=== PATIENT | male | born 1955 | race Caucasian/White ===

== ENCOUNTER 2016-07-22 12:53 | Emergency (ER) | payer BC ==
[2016-07-22 13:13] VITALS: BP 166/99; PULSE 84; RESP 18; TEMP 98.5
--- NOTE | 2016-07-22 13:54 | ED ---
General Adult HPI - General Chief complaint: Back Pain/Injury Stated complaint: Back Pain Time Seen by Provider: 07/22/16 13:20 Source: patient, RN notes reviewed Mode of arrival: ambulatory Limitations: no limitations - History of Present Illness Initial comments: Patient 60-year-old male who presents emergency room today with a chief complaint of electrical right back pain and numbness to the right side. Patient does admit that it started just approximate hour ago. He states he was driving he felt a electrical-type shock starting on the right side of his lower back that radiated up going towards his right side of his neck. Patient admits that last approximately a minute and went away and came back approximately 10- 15 minutes later. He states this has happened now for 5 times. Patient states there's been no injury or trauma to the area. He never had similar symptoms in the past. He currently denies any other complaints or symptoms. He states that at this time he's not feeling any pain. He states does not reproduce biting movements. Patient denies any recent fever, chills, shortness of breath, chest pain, back pain, abdominal pain, nausea or vomiting, numbness or tingling , dysuria or hematuria, constipation or diarrhea, headaches or visual changes, or any other complaints. - Related Data Allergies Allergy/AdvReac Type Severity Reaction Status Date / Time mold Allergy Unknown Verified 07/22/16 13:13 Review of Systems ROS Statement: Those systems with pertinent positive or pertinent negative responses have been documented in the HPI. ROS Other: All systems not noted in ROS Statement are negative. Past Medical History Past Medical History: Cancer Additional Past Medical History / Comment(s): melanoma and kidney ca History of Any Multi-Drug Resistant Organisms: None Reported Additional Past Surgical History / Comment(s): nephrectomy Past Psychological History: No Psychological Hx Reported Smoking Status: Never smoker Past Alcohol Use History: None Reported Past Drug Use History: None Reported General Exam - General Exam Comments Initial Comments: General: The patient is awake and alert, in no distress, and does not appear acutely ill. Eye: Pupils are equal, round and reactive to light, extra-ocular movements are intact. No nystagmus. There is normal conjunctiva bilaterally. No signs of icterus. Ears, nose, mouth and throat: There are moist mucous membranes and no oral lesions. Neck: The neck is supple, there is no tenderness or JVD. Cardiovascular: There is a regular rate and rhythm. No murmur, rub or gallop is appreciated. Respiratory: Lungs are clear to auscultation, respirations are non-labored, breath sounds are equal. No wheezes, stridor, rales, or rhonchi. Gastrointestinal: Soft, non-distended, non-tender abdomen without masses or organomegaly noted. There is no rebound or guarding present. No CVA tenderness. Bowel sounds are unremarkable. Musculoskeletal: No appearance of cervical, thoracic, lumbar spine. No step- offs deformities appreciated. Normal ROM, no tenderness. Strength 5/5. Sensation intact. Pulses equal bilaterally 2+. Neurological: A&O x 3. CN II-XII intact, There are no obvious motor or sensory deficits. Coordination appears grossly intact. Speech is normal. Skin: Skin is warm and dry and no rashes or lesions are noted. Psychiatric: Cooperative, appropriate mood & affect, normal judgment. Limitations: no limitations Course Vital Signs 07/22/16 13:10 Temperature 98.5 F Pulse Rate 84 Respiratory 18 Rate Blood Pressure 166/99 O2 Sat by Pulse 97 Oximetry Medical Decision Making - Medical Decision Making Case discussed in detail with attending physician Dr. Borges. Patient's x-rays reviewed and does show evidence for arthritic changes with no acute abnormalities. Results were discussed with the patient. Patient will be discharged home and advised to follow up his family doctor over the next 2 days. Patient advised return to emergency room if any symptoms increase or worsen or for any other concerns. Disposition Clinical Impression: Paresthesia Disposition: HOME SELF-CARE Condition: Good Instructions: Paresthesia (ED) Additional Instructions: Please follow-up with family doctor in the next 2 days of symptoms have not improved. Please return to emergency room if the symptoms increase or worsen or for any other concerns. Time of Disposition: 14:04
--- NOTE | 2016-07-22 13:57 | XR ---
EXAMINATION TYPE: 3 views thoracic spine. 3 views lumbar spine. DATE OF EXAM: 07/22/2016 1:47 PM COMPARISON: NONE HISTORY: 60-year-old male right-sided back pain and numbness FINDINGS: Thoracic spine: All pedicles are visualized. There is mild endplate spondylosis particularly in the mid to lower thor acic spine. Vertebral body heights are preserved and alignment is maintained. Lumbar spine: 5 lumbar type vertebral bodies. Surgical clips projecting at the right paramedian upper to mid abdome n. Mild degenerative disc height loss at L5-S1 with mild endplate spondylosis throughout. Additional mild degenerative disc interspace narrowing at T12-L1 and L1-L2. Vertebral body heights are preserved and alignment is maintained. Facet arthropathy lower lumbar spine. IMPRESSION: 1. Thoracic spine: Mild endplate spondylosis mid to lower thoracic spine. No vertebral compression co llapse or malalignment. 2. Lumbar spine: Facet arthropathy lower lumbar spine. Additional scattered mild degenerative disc di sease. No vertebral compression collapse or malalignment.
== END 2016-07-22 14:12 | disposition home or self-care (01) ==
LOC: EC 12:53
DX: R20.9 Unspecified disturbances of skin sensation (principal); M54.5 Low back pain; M54.2 Cervicalgia; Z91.048 Other nonmedicinal substance allergy status; Z85.528 Personal history of other malignant neoplasm of kidney; Z85.820 Personal history of malignant melanoma of skin
CPT/HCPCS: 72072; 72100; 99283

== ENCOUNTER 2021-12-27 09:23 | Inpatient (IN) | payer BC, OTHER ==
[2021-12-27] MEDS ORDERED: ASPIRIN 81 MG PO STA (09:25)
[2021-12-27] MEDS ORDERED: NITROGLYCERIN OINT 1 INCH/GM PACKET TOPICAL STA (09:25)
--- NOTE | 2021-12-27 09:30 | ED ---
General Adult HPI - General Stated complaint: Chest pain Time Seen by Provider: 12/27/21 09:25 Source: patient, EMS, RN notes reviewed, old records reviewed Mode of arrival: EMS Limitations: no limitations - History of Present Illness Initial comments: Patient is a pleasant 66-year-old male presenting to the emergency department with concerns for chest discomfort. Onset was yesterday while doing yardwork. Discomfort was 5/10. Discomfort is right sternal and difficult to describe. A robertson was diaphoretic yesterday. No nausea. No dyspnea. Discomfort resolved with nitroglycerin by EMS. Patient is currently symptom-free at this time. No leg pain or leg swelling. No history of similar symptoms previously. Patient does have history of diabetes and hypertension. - Related Data Allergies Allergy/AdvReac Type Severity Reaction Status Date / Time mold Allergy Unknown Verified 07/22/16 13:13 Review of Systems ROS Statement: Those systems with pertinent positive or pertinent negative responses have been documented in the HPI. ROS Other: All systems not noted in ROS Statement are negative. Constitutional: Denies: fever Eyes: Denies: eye pain ENT: Denies: ear pain Respiratory: Denies: cough, dyspnea Cardiovascular: Reports: as per HPI, chest pain Endocrine: Denies: fatigue Gastrointestinal: Denies: abdominal pain Genitourinary: Denies: dysuria Musculoskeletal: Denies: back pain Skin: Denies: rash Neurological: Denies: weakness Past Medical History Past Medical History: Cancer Additional Past Medical History / Comment(s): melanoma and kidney ca History of Any Multi-Drug Resistant Organisms: None Reported Additional Past Surgical History / Comment(s): nephrectomy Past Psychological History: No Psychological Hx Reported Past Alcohol Use History: None Reported Past Drug Use History: None Reported General Exam Limitations: no limitations General appearance: alert, in no apparent distress Head exam: Present: normocephalic Eye exam: Present: normal appearance Neck exam: Present: normal inspection Respiratory exam: Present: normal lung sounds bilaterally. Absent: chest wall tenderness Cardiovascular Exam: Present: regular rate, normal rhythm, normal heart sounds Expanded Peripheral pulses: 2+: Radial (R), Radial (L), Posterior Tibialis (R), Posterior Tibialis (L) GI/Abdominal exam: Present: soft. Absent: tenderness Extremities exam: Present: normal inspection. 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 Finch and will come evaluate. 12/27/21 09:54 Dr. Becker did see the patient and will go to the [facility] [employer] that has been called. EKG Findings - EKG Comments: EKG Findings:: Sinus rhythm with rate of 72. First-degree AV block VT 206. QRS 104. QT 356. QTc 381. Left axis. Inferior Q waves. Septal Q waves with ST elevation. Medical Decision Making - Medical Decision Making Patient reevaluated. Patient updated. Case discussed with Dr. Crews, who will admit covering Dr. Brennan. - Lab Data Result diagrams: 12/27/21 09:37 12/27/21 09:37 Lab Results 12/27/21 12/27/21 Range/Units 09:37 09:37 WBC 14.0 H (3.8-10.6) k/uL RBC 5.65 (4.30-5.90) m/uL Hgb 17.0 (13.0-17.5) gm/dL Hct 48.1 (39.0-53.0) % MCV 85.1 (80.0-100.0) fL MCH 30.1 (25.0-35.0) pg MCHC 35.4 (31.0-37.0) g/dL RDW 13.7 (11.5-15.5) % Plt Count 196 (150-450) k/uL MPV 7.9 Neutrophils % 83 % Lymphocytes % 8 % Monocytes % 7 % Eosinophils % 1 % Basophils % 0 % Neutrophils # 11.7 H (1.3-7.7) k/uL Lymphocytes # 1.1 (1.0-4.8) k/uL Monocytes # 0.9 (0-1.0) k/uL Eosinophils # 0.1 (0-0.7) k/uL Basophils # 0.1 (0-0.2) k/uL Sodium 138 (137-145) mmol/L Potassium 4.4 (3.5-5.1) mmol/L Chloride 99 (98-107) mmol/L Carbon Dioxide 28 (22-30) mmol/L Anion Gap 11 mmol/L BUN 18 (9-20) mg/dL Creatinine 1.08 (0.66-1.25) mg/dL Est GFR (CKD-EPI)AfAm 83 (>60 ml/min/1.73 sqM) Est GFR (CKD-EPI)NonAf 72 (>60 ml/min/1.73 sqM) Glucose 273 H (74-99) mg/dL Calcium 10.3 H (8.4-10.2) mg/dL Magnesium 1.9 (1.6-2.3) mg/dL Total Bilirubin 0.7 (0.2-1.3) mg/dL AST 229 H (17-59) U/L ALT 77 H (4-49) U/L Alkaline Phosphatase 86 (38-126) U/L Total Protein 7.3 (6.3-8.2) g/dL Albumin 4.6 (3.5-5.0) g/dL - Radiology Data Radiology results: image reviewed Critical Care Time Critical Care Time: Yes Total Critical Care Time: 33 Disposition Clinical Impression: Myocardial infarction Disposition: ADMITTED IP TO THIS [facility] Condition: Serious Is patient prescribed a controlled substance at d/c from ED?: No Referrals: Leonard Brennan MD [Primary Care Provider] - 1-2 days Time of Disposition: 09:56
[2021-12-27] MEDS ORDERED: ATORVASTATIN 80 MG TAB PO STA (09:40)
[2021-12-27 09:44] LABS: Basophils # (A) 0.1 k/uL (0-0.2); Basophils % (A) 0 %; Eosinophils # (A) 0.1 k/uL (0-0.7); Eosinophils % (A) 1 %; HCT 48.1 % (39.0-53.0); Lymphocytes # (A) 1.1 k/uL (1.0-4.8); Lymphocytes % (A) 8 %; MCH 30.1 pg (25.0-35.0); MCHC 35.4 g/dL (31.0-37.0); MCV 85.1 fL (80.0-100.0); Mean Platelet Volume 7.9; Monocytes # (A) 0.9 k/uL (0-1.0); Monocytes % (A) 7 %; Neutrophils # (A) 11.7 k/uL (1.3-7.7); Neutrophils % (A) 83 %; Platelet Count 196 k/uL (150-450); RBC 5.65 m/uL (4.30-5.90); RDW 13.7 % (11.5-15.5)
[2021-12-27] MEDS ORDERED: HEPARIN SODIUM 1,000 UN/ML (10ML VL) IV ONE (09:44)
[2021-12-27] MEDS ORDERED: HEPARIN SODIUM 1,000 UN/ML (10ML VL) IV PRN (09:44)
[2021-12-27] MEDS ORDERED: HEPARIN SOD,PORK IN 0.45% NACL 25,000 UNIT in 0.45% NACL 1 250ML.BAG IV SCH (09:45)
[2021-12-27 09:53] LABS: Albumin 4.6 g/dL (3.5-5.0); Calcium 10.3 mg/dL (8.4-10.2); Magnesium 1.9 mg/dL (1.6-2.3); Potassium 4.4 mmol/L (3.5-5.1); Total Bilirubin 0.7 mg/dL (0.2-1.3); Total Protein 7.3 g/dL (6.3-8.2)
--- NOTE | 2021-12-27 09:57 | XR ---
EXAMINATION TYPE: XR chest 1V portable DATE OF EXAM: 12/27/2021 COMPARISON: Chest x-ray 01/17/2016 HISTORY: Chest pain TECHNIQUE: Single frontal view of the chest is obtained. FINDINGS: There is no focal air space opacity, pleural effusion, or pneumothorax seen. The cardiac silhouette size is within normal limits. The osseous structures are intact. IMPRESSION: No acute process.
[2021-12-27] MEDS ORDERED: NITROGLYCERIN SL TABS 0.4 MG TAB SUBLINGUAL PRN ×2 (09:59→11:57)
[2021-12-27 10:03] LABS: INR 1.1 (<1.2); Partial Thromboplastin Time 22.6 sec (22.0-30.0); Prothrombin Time 11.4 sec (9.0-12.0)
[2021-12-27] MEDS ORDERED: ACETAMINOPHEN TAB 325 MG TAB PO PRN (10:19)
[2021-12-27] MEDS ORDERED: NALOXONE 0.4 MG/ML 1 ML VIAL IV PRN (10:19)
[2021-12-27] MEDS ORDERED: DEXTROSE 50% SYRINGE 50 ML IVP PRN ×2 (10:20)
[2021-12-27] MEDS ORDERED: fentaNYL (PF) 50 MCG/ML 2 ML AMP ONE (10:25)
--- NOTE | 2021-12-27 10:25 | P.HPIM ---
History of Present Illness H&P Date: 12/27/21 Patient is a 66-year-old male with pain with PMH of melanoma post resection, renal CA post nephrectomy 12 years ago, diabetes mellitus and presents ED for chest pain. Patient reports chest pain that started at 4:30 PM yesterday. 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 He reports right-sided chest pain that radiates to the right arm. Pain is dull in nature. Pain is 3 out of 10 in severity. Pain was associated with diaphoresis. Patient thought this was a musculskeletal pain, but came to the ED when his pain persisted. He denies any exertional chest pain. No exertional shortness of breath. He denies any headache, lower extremity edema, nausea vomiting, fever or chills, cough, palpitations, changes in urination or bowel habits. No changes in appetite or weight. He denies any dizziness, numbness/weakness/tingling of the extremities. In the ED, his vital signs are stable. CBC showed leukocytosis of 14. D-dimer was 0.83. INR was 1.1. CMP showed glucose of 273, calcium of 10.3, AST of 229 and ALT of 77. Chest x-ray negative. EKG was concerning for inferior wall AL with Q waves. Plans for cardiac catheterization. Review of systems is performed and is negative except above. General: non toxic, no distress, appears at stated age Derm: warm, dry Head: atraumatic, normocephalic, symmetric Eyes: EOMI, no lid lag, anicteric sclera Mouth: no lip lesion, mucus membranes moist Cardiovascular: S1S2 reg, no murmur, positive posterior tibial pulse bilateral, Lungs: CTA bilateral, no rhonchi, no rales , no accessory muscle use Abdominal: soft, nontender to palpation, no guarding, no appreciable organomegaly Ext: no gross muscle atrophy, no edema, no contractures Neuro: CN II-XI grossly intact, no focal neuro deficits Psych: Alert, oriented, appropriate affect #Inferior wall AL #Elevated d-dimer #Leukocytosis #Diabetes mellitus with hyperglycemia #Transaminitis Chronic conditions: Melanoma post resection, Renal CA post nephrectomy 12 years ago EKG concerns for inferior wall AL. Patient will be started on a heparin drip. ASA and Lipitor ordered. Telemetry monitoring. Plans for cardiac catheterization. Echocardiogram ordered. Cardiology consulted. Elevated DDimer could be related to NSTEMI. Patient is not hypoxic nor tachyc ardic. Will continue to monitor for now. Leukocytosis likely reactive. No signs of active infection. Start low dose insulin sliding scale along with accuchecks ACHS and hypoglycemic precautions. Unknown etiology for transaminitis. Non obstructive. DVT prophylaxis: Heparin drip Discussed with: Patient, ED physician Anticipated discharge: 2-[address]: Home A total of 30 minutes was spent on the care of this complex patient more than 50% of the time was spent in counseling and care coordination. Patient says girlfriend decision maker if he can't make decisions for himself. Patient would like to be full code. Past Medical History Past Medical History: Cancer Additional Past Medical History / Comment(s): melanoma and kidney ca History of Any Multi-Drug Resistant Organisms: None Reported Additional Past Surgical History / Comment(s): nephrectomy Past Psychological History: No Psychological Hx Reported Past Alcohol Use History: None Reported Past Drug Use History: None Reported Medications and Allergies Allergies Allergy/AdvReac Type Severity Reaction Status Date / Time mold Allergy Unknown Verified 07/22/16 13:13 Physical Exam Vitals: Vital Signs Temp Pulse Pulse Resp BP Pulse Ox 12/27/21 09:32 71 12/27/21 09:29 98.4 F 76 16 138/86 95 Intake and Output 12/26/21 12/27/21 12/27/21 22:59 06:59 14:59 Other: Weight 81.647 kg Results CBC & Chem 7: 12/27/21 09:37 12/27/21 09:37 Labs: Abnormal Lab Results - Last 24 Hours (Table) 12/27/21 12/27/21 12/27/21 Range/Units 09:37 09:37 09:37 WBC 14.0 H (3.8-10.6) k/uL Neutrophils # 11.7 H (1.3-7.7) k/uL D-Dimer 0.83 H (<0.60) mg/L FEU Glucose 273 H (74-99) mg/dL Calcium 10.3 H (8.4-10.2) mg/dL AST 229 H (17-59) U/L ALT 77 H (4-49) U/L
--- NOTE | 2021-12-27 10:25 | P.HPIM ---
History of Present Illness H&P Date: 12/27/21 Patient is a 66-year-old male with pain with PMH of melanoma post resection, renal CA post nephrectomy 12 years ago, diabetes mellitus and presents ED for chest pain. Patient reports chest pain that started at 4:30 PM yesterday. 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 He reports right-sided chest pain that radiates to the right arm. Pain is dull in nature. Pain is 3 out of 10 in severity. Pain was associated with diaphoresis. Patient thought this was a musculskeletal pain, but came to the ED when his pain persisted. He denies any exertional chest pain. No exertional shortness of breath. He denies any headache, lower extremity edema, nausea vomiting, fever or chills, cough, palpitations, changes in urination or bowel habits. No changes in appetite or weight. He denies any dizziness, numbness/weakness/tingling of the extremities. In the ED, his vital signs are stable. CBC showed leukocytosis of 14. D-dimer was 0.83. INR was 1.1. CMP showed glucose of 273, calcium of 10.3, AST of 229 and ALT of 77. Chest x-ray negative. EKG was concerning for inferior wall OR with Q waves. Plans for cardiac catheterization. Review of systems is performed and is negative except above. General: non toxic, no distress, appears at stated age Derm: warm, dry Head: atraumatic, normocephalic, symmetric Eyes: EOMI, no lid lag, anicteric sclera Mouth: no lip lesion, mucus membranes moist Cardiovascular: S1S2 reg, no murmur, positive posterior tibial pulse bilateral, Lungs: CTA bilateral, no rhonchi, no rales , no accessory muscle use Abdominal: soft, nontender to palpation, no guarding, no appreciable organomegaly Ext: no gross muscle atrophy, no edema, no contractures Neuro: CN II-XI grossly intact, no focal neuro deficits Psych: Alert, oriented, appropriate affect #Inferior wall OR #Elevated d-dimer #Leukocytosis #Diabetes mellitus with hyperglycemia #Transaminitis Chronic conditions: Melanoma post resection, Renal CA post nephrectomy 12 years ago EKG concerns for inferior wall OR. Patient will be started on a heparin drip. ASA and Lipitor ordered. Telemetry monitoring. Plans for cardiac catheterization. Echocardiogram ordered. Cardiology consulted. Elevated DDimer could be related to NSTEMI. Patient is not hypoxic nor tachyc ardic. Will continue to monitor for now. Leukocytosis likely reactive. No signs of active infection. Start low dose insulin sliding scale along with accuchecks ACHS and hypoglycemic precautions. Unknown etiology for transaminitis. Non obstructive. DVT prophylaxis: Heparin drip Discussed with: Patient, ED physician Anticipated discharge: 2-[address]: Home A total of 30 minutes was spent on the care of this complex patient more than 50% of the time was spent in counseling and care coordination. Patient says girlfriend decision maker if he can't make decisions for himself. Patient would like to be full code. Past Medical History Past Medical History: Cancer Additional Past Medical History / Comment(s): melanoma and kidney ca History of Any Multi-Drug Resistant Organisms: None Reported Additional Past Surgical History / Comment(s): nephrectomy Past Psychological History: No Psychological Hx Reported Past Alcohol Use History: None Reported Past Drug Use History: None Reported Medications and Allergies Allergies Allergy/AdvReac Type Severity Reaction Status Date / Time mold Allergy Unknown Verified 07/22/16 13:13 Physical Exam Vitals: Vital Signs Temp Pulse Pulse Resp BP Pulse Ox 12/27/21 09:32 71 12/27/21 09:29 98.4 F 76 16 138/86 95 Intake and Output 12/26/21 12/27/21 12/27/21 22:59 06:59 14:59 Other: Weight 81.647 kg Results CBC & Chem 7: 12/27/21 09:37 12/27/21 09:37 Labs: Abnormal Lab Results - Last 24 Hours (Table) 12/27/21 12/27/21 12/27/21 Range/Units 09:37 09:37 09:37 WBC 14.0 H (3.8-10.6) k/uL Neutrophils # 11.7 H (1.3-7.7) k/uL D-Dimer 0.83 H (<0.60) mg/L FEU Glucose 273 H (74-99) mg/dL Calcium 10.3 H (8.4-10.2) mg/dL AST 229 H (17-59) U/L ALT 77 H (4-49) U/L
[2021-12-27] MEDS ORDERED: MIDAZOLAM 2 MG/2 ML VIAL IV ONE (10:38)
[2021-12-27] MEDS ORDERED: fentaNYL (PF) 50 MCG/ML 2 ML AMP IV ONE (10:38)
[2021-12-27] MEDS ORDERED: LIDOCAINE 1% INJ 10MG/ML (30 ML VIAL-PF) SQ ONE (10:40)
[2021-12-27] MEDS ORDERED: VERAPAMIL SYRINGE (5 MG/10 ML) INTRAARTER ONE (10:42)
[2021-12-27] MEDS ORDERED: HEPARIN SODIUM 1,000 UN/ML (10ML VL) ONE (10:50)
[2021-12-27] MEDS: HEPARIN SODIUM 1,000 UN/ML (10ML VL) IV ONE ×3 (10:52→11:52)
[2021-12-27] MEDS ORDERED: SODIUM CHLORIDE 0.9% 1,000 ML IV ONE (10:52)
[2021-12-27] MEDS ORDERED: PRASUGREL 10 MG TAB ONE (10:56)
[2021-12-27] MEDS ORDERED: PRASUGREL 10 MG TAB PO ONE (10:59)
[2021-12-27] MEDS: NITROGLYCERIN 1000MCG/10ML SYRINGE INTRACORON ONE ×6 (11:04→11:41)
[2021-12-27] MEDS ORDERED: IOPAMIDOL-370 125ML BTL INJ ONE (11:15)
--- NOTE | 2021-12-27 11:39 | P.CRDCN ---
History of Present Illness History of present illness: This is Dr. Becker dictating a consult on this patient The patient was interviewed and examined IMPRESSION / ASSESSMENT: Completed large anterior wall OR greater than 17 hours post onset Twelve-lead EKG shows Q waves V2-V6 and in the inferior leads consistent with a wraparound LAD Type 2 diabetes on metformin and glipizide Patient on low-dose lisinopril and atorvastatin PLAN: Discussed with the patient, discussed with Dr. Crespo We'll proceed today with coronary angiography and likely coronary stenting Dual antiplatelet therapy Stop lisinopril and I may switch to ENTRESTO depending upon his left ventricle ejection fraction I anticipate severely reduced left ventricular systolic function Beta blockers High-dose statins HPI Patient has diabetes hypertension He is on low dose of statins and lisinopril and follows with his PCP Dr. Rivers Exercises regularly for 30 minutes every day Yesterday at 4:30 PM he was working in his yard and he was pulling on something when he had severe right arm pain and right shoulder pain and some right-sided chest pain He thought it was a muscle pull or strain to the pain was continuous and this morning since the pain would not go away he went to the urgent care An EKG was performed He was told that the EKG did not look good and was sent to the ER He was given sublingual nitroglycerin with relief of pain and when I saw him he was completely pain free no respiratory distress completely asymptomatic with normal heart rate and blood pressure His first 12-lead EKG showed Q waves V2-V6 and in the inferior leads with ST elevation in the precordial leads consistent with a completed anterior apical OR with inferior extension History of IV heparin aspirin statins and subsequently was taken to the catheterization laboratory ROS: No fever chills or rigors, no cough, phlegm or expectoration, no nausea, vomiting or diarrhea, no hematuria, dysuria, no musculoskeletal complaints, no strokes or seizures, no skin lesions. Denies regular alcohol use Denies any recent viral symptoms EXAMINATION: Heart rate in the 70s blood pressure in the 130s No JVD No murmurs Clear lungs no rhonchi no crackles No S3 gallop No lower extremity edema REVIEW OF LABS, ECG & MEDICAL DATA White count 14,000 hemoglobin 17 Normal electrolytes potassium 4.4 BUN and creatinine normal First troponin 49.4 AST 229 ALT 77 Past Medical History Past Medical History: Cancer Additional Past Medical History / Comment(s): melanoma and kidney ca History of Any Multi-Drug Resistant Organisms: None Reported Additional Past Surgical History / Comment(s): nephrectomy Past Psychological History: No Psychological Hx Reported Past Alcohol Use History: None Reported Past Drug Use History: None Reported Medications and Allergies Home Medications Medication Instructions Recorded Confirmed Type Atorvastatin [Lipitor] 10 mg PO DAILY 12/27/21 12/27/21 History glipiZIDE XL [Glucotrol Xl] 5 mg PO DAILY 12/27/21 12/27/21 History lisinopriL 2.5 mg PO DAILY 12/27/21 12/27/21 History metFORMIN HCL ER [Glucophage XR] 1,000 mg PO BID 12/27/21 12/27/21 History Allergies Allergy/AdvReac Type Severity Reaction Status Date / Time mold Allergy Unknown Verified 12/27/21 10:32 Physical Exam Vitals: Vital Signs Temp Pulse Pulse Resp BP Pulse Ox 12/27/21 09:32 71 12/27/21 09:29 98.4 F 76 16 138/86 95 Intake and Output 12/26/21 12/27/21 12/27/21 22:59 06:59 14:59 Other: Weight 81.647 kg Results 12/27/21 09:37 12/27/21 09:37 Cardiac Enzymes 12/27/21 12/27/21 Range/Units 09:37 09:37 AST 229 H (17-59) U/L Troponin I 49.400 H* (0.000-0.034) ng/mL Coagulation 12/27/21 Range/Units 09:37 PT 11.4 (9.0-12.0) sec APTT 22.6 (22.0-30.0) sec CBC 12/27/21 Range/Units 09:37 WBC 14.0 H (3.8-10.6) k/uL RBC 5.65 (4.30-5.90) m/uL Hgb 17.0 (13.0-17.5) gm/dL Hct 48.1 (39.0-53.0) % Plt Count 196 (150-450) k/uL Comprehensive Metabolic Panel 12/27/21 Range/Units 09:37 Sodium 138 (137-145) mmol/L Potassium 4.4 (3.5-5.1) mmol/L Chloride 99 (98-107) mmol/L Carbon Dioxide 28 (22-30) mmol/L BUN 18 (9-20) mg/dL Creatinine 1.08 (0.66-1.25) mg/dL Glucose 273 H (74-99) mg/dL Calcium 10.3 H (8.4-10.2) mg/dL AST 229 H (17-59) U/L ALT 77 H (4-49) U/L Alkaline Phosphatase 86 (38-126) U/L Total Protein 7.3 (6.3-8.2) g/dL Albumin 4.6 (3.5-5.0) g/dL Current Medications Generic Name Dose Route Start Last Admin Trade Name Freq PRN Reason Stop Dose Admin Acetaminophen 650 mg 12/27/21 10:19 Acetaminophen Tab 325 Mg Tab PO Q6HR PRN Mild Pain or Fever > 100.5 Aspirin 325 mg 12/28/21 09:00 Aspirin 325 Mg Tab PO DAILY [facility] Atorvastatin Calcium 80 mg 12/28/21 09:00 Atorvastatin 80 Mg Tab PO DAILY [facility] Dextrose/Water 25 ml 12/27/21 10:20 Dextrose 50% Syringe 50 Ml IVP PER PROTOCOL PRN Hypoglycemia Protocol Dextrose/Water 50 ml 12/27/21 10:20 Dextrose 50% Syringe 50 Ml IVP PER PROTOCOL PRN Hypoglycemia Protocol Heparin Sodium (Porcine) 0 unit 12/27/21 09:44 Heparin Sodium 1,000 Un/Ml (10ml Vl) IV PER PROTOCOL PRN Low PTT Protocol Heparin Sodium/Sodium Chloride 250 mls @ 9.798 mls/hr 12/27/21 09:45 12/27/21 09:54 25,000 unit/ Sodium Chloride IV 12 units/kg/hr .Q24H SEAN 9.798 mls/hr Administration Protocol 12 UNITS/KG/HR Insulin Aspart 0 unit 12/27/21 12:30 Insulin Aspart (Novolog) 100 Unit/Ml Vial SQ ACHS SEAN Protocol Naloxone HCl 0.2 mg 12/27/21 10:19 Naloxone 0.4 Mg/Ml 1 Ml Vial IV Q2M PRN Opioid Reversal Nitroglycerin 0.4 mg 12/27/21 09:59 Nitroglycerin Sl Tabs 0.4 Mg Tab SUBLINGUAL Q5M PRN Chest Pain Nitroglycerin 1 inch 12/27/21 12:00 Nitroglycerin Oint 1 Inch/Gm Packet TOPICAL Q6HR SEAN Intake and Output 12/26/21 12/27/21 12/27/21 22:59 06:59 14:59 Other: Weight 81.647 kg Patient Weight 12/28/21 06:59 Weight 81.647 kg 12/27/21 09:37 12/27/21 09:37
[2021-12-27] MEDS ORDERED: IOPAMIDOL-370 100ML BTL INJ ONE (11:41)
[2021-12-27] MEDS ORDERED: ATROPINE SULFATE 0.1 MG/ML 10ML SYRINGE IV PRN (11:57)
[2021-12-27] MEDS ORDERED: RX INFO: IV CONTRAST WAS GIVEN 1 EACH MISC MISCELLANE PRN (11:57)
[2021-12-27] MEDS ORDERED: ZOLPIDEM 5 MG TAB PO PRN (11:57)
[2021-12-27] MEDS ORDERED: MAG HYDROX/AL HYDROX/SIMETH 30 ML CUP PO PRN (11:57)
--- NOTE | 2021-12-27 11:57 | P.PRCINT ---
Percutaneous Coronary Int. - Percutaneous Coronary Intervention Percutaneous Coronary Intervention: PROCEDURES PERFORMED: Left heart catheterization, bilateral coronary angiography, IVUS, PCI mid to distal LAD with 2.25 x 38mm Xience SHAD, proximal to mid LAD with 2.5 x 33 mm Xience SHAD postdilated proximally with a 3.5 noncompliant balloon INDICATION: Non-STEMI CONSENT:I have discussed the risks, benefits and alternative therapies for the above-mentioned procedure and for both sedation/analgesia as well as necessary blood product administration, if indicated, as they pertain to this patient. The patient has indicated understanding and acceptance of the risks and procedures discussed. PROCEDURE: After the risks, benefits and alternatives of the above mentioned procedure explained in detail with the patient, informed consent was obtained. Patient was taken to the catheterization lab and prepped and draped in usual fashion. 1% lidocaine was used to anesthetize the right radial artery. A 6- Mauritian sheath was placed in the right radial artery using modified Seldinger technique. Left coronary angiography was performed with a 5-Mauritian JL 3.5 catheter and right coronary angiography was performed with a 5-Mauritian JR5 catheter in various views. A 5-Mauritian FR5 catheter was inserted into the left ventricle and pressure measurements were obtained. There was some oozing around the radial site possibly from a more superficial vasculature and therefore a 7- Mauritian sheath was placed in exchange for the 6-Mauritian. The decision was made to perform PCI of LAD. A 6-Mauritian CLS 3.5 guide was used to engage the left main. A 0.014 BMW wire was advanced into the distal LAD. Predilation was performed with a 2.5 x 12 mm balloon. IVUS was performed which did show both a mid LAD and a mid to distal diffuse LAD stenosis and therefore decision was made to perform stenting of both. A 2.25 x 38 mm Xience SHAD was placed in the mid to distal LAD. Next a 2.5 x 33 mm Xience SHAD was placed in the proximal to mid LAD overlapping the diagonal branch secondary to lesion extending into the bifurcation of the diagonal. The proximal portion of the stent was postdilated with a 3.5 noncompliant balloon. Repeat IVUS did show some underexpansion of the proximal edge of the stent and therefore this was treated again with a 3.5 noncompliant balloon. Repeat IVUS showed excellent stent apposition and sizing. Final angiograms were performed. Preintervention there was 100% stenosis and MAREK 0 flow and postintervention there was 0% stenosis and MAREK-3 flow. The right radial sheath was removed and a TR band was placed with hemostasis achieved. The patient tolerated the procedure well. Patient was transported back to the post catheterization holding area in stable condition. Conscious Sedation: Patient was monitored under the direct supervision of vision of myself for conscious sedation using Versed and fentanyl for a total duration of 67 minutes HEMODYNAMICS: Aortic: 156/62 LV: 151/16, LVEDP 27 SELECTIVE CORONARY ARTERIOGRAPHY: LEFT MAIN: The left main is a large caliber vessel which bifurcates into the LAD and circumflex. There is no significant stenosis. LEFT ANTERIOR DESCENDING CORONARY ARTERY: LAD is a large caliber vessel which wraps around to the apex. There is a mid LAD 80% stenosis at the level of a moderate to large caliber diagonal 1 branch. There is 100% stenosis of the mid to distal LAD. LEFT CIRCUMFLEX CORONARY ARTERY: Left circumflex is a moderate caliber vessel with mild luminal irregularities. RIGHT CORONARY ARTERY: The right coronary artery is a large caliber vessel which gives off a PDA and PLV branch and is the dominant vessel. There are mild luminal irregularities. FINAL IMPRESSION: 1. CAD as described above including 80% mid LAD and 100% mid to distal LAD stenosis 2. S/p PCI mid to distal LAD with 2.25 x 38mm Xience SHAD, proximal to mid LAD with 2.5 x 33 mm Xience SHAD postdilated proximally with a 3.5 noncompliant balloon 3. Elevated left sided filling pressures PLAN: 1. Aggressive risk factor modification per most recent ACC/AHA guidelines. 2. Continue dual antiplatelets with aspirin and Effient for a total of 12 months
--- NOTE | 2021-12-27 11:57 | P.PRCINT ---
Percutaneous Coronary Int. - Percutaneous Coronary Intervention Percutaneous Coronary Intervention: PROCEDURES PERFORMED: Left heart catheterization, bilateral coronary angiography, IVUS, PCI mid to distal LAD with 2.25 x 38mm Xience SHAD, proximal to mid LAD with 2.5 x 33 mm Xience SHAD postdilated proximally with a 3.5 noncompliant balloon INDICATION: Non-STEMI CONSENT:I have discussed the risks, benefits and alternative therapies for the above-mentioned procedure and for both sedation/analgesia as well as necessary blood product administration, if indicated, as they pertain to this patient. The patient has indicated understanding and acceptance of the risks and procedures discussed. PROCEDURE: After the risks, benefits and alternatives of the above mentioned procedure explained in detail with the patient, informed consent was obtained. Patient was taken to the catheterization lab and prepped and draped in usual fashion. 1% lidocaine was used to anesthetize the right radial artery. A 6- Uruguayan sheath was placed in the right radial artery using modified Seldinger technique. Left coronary angiography was performed with a 5-[place]rugu[place] JL 3.5 catheter and right coronary angiography was performed with a 5-[place]rugu[place] JR5 catheter in various views. A 5-[place]rugu[place] FR5 catheter was inserted into the left ventricle and pressure measurements were obtained. There was some oozing around the radial site possibly from a more superficial vasculature and therefore a 7- [place]ruguayan sheath was placed in exchange for the 6-Uruguayan. The decision was made to perform PCI of LAD. A 6-[place]rugu[place] CLS 3.5 guide was used to engage the left main. A 0.014 BMW wire was advanced into the distal LAD. Predilation was performed with a 2.5 x 12 mm balloon. IVUS was performed which did show both a mid LAD and a mid to distal diffuse LAD stenosis and therefore decision was made to perform stenting of both. A 2.25 x 38 mm Xience SHAD was placed in the mid to distal LAD. Next a 2.5 x 33 mm Xience SHAD was placed in the proximal to mid LAD overlapping the diagonal branch secondary to lesion extending into the bifurcation of the diagonal. The proximal portion of the stent was postdilated with a 3.5 noncompliant balloon. Repeat IVUS did show some underexpansion of the proximal edge of the stent and therefore this was treated again with a 3.5 noncompliant balloon. Repeat IVUS showed excellent stent apposition and sizing. Final angiograms were performed. Preintervention there was 100% stenosis and MAREK 0 flow and postintervention there was 0% stenosis and MAREK-3 flow. The right radial sheath was removed and a TR band was placed with hemostasis achieved. The patient tolerated the procedure well. Patient was transported back to the post catheterization holding area in stable condition. Conscious Sedation: Patient was monitored under the direct supervision of vision of myself for conscious sedation using Versed and fentanyl for a total duration of 67 minutes HEMODYNAMICS: Aortic: 156/62 LV: 151/16, LVEDP 27 SELECTIVE CORONARY ARTERIOGRAPHY: LEFT MAIN: The left main is a large caliber vessel which bifurcates into the LAD and circumflex. There is no significant stenosis. LEFT ANTERIOR DESCENDING CORONARY ARTERY: LAD is a large caliber vessel which wraps around to the apex. There is a mid LAD 80% stenosis at the level of a moderate to large caliber diagonal 1 branch. There is 100% stenosis of the mid to distal LAD. LEFT CIRCUMFLEX CORONARY ARTERY: Left circumflex is a moderate caliber vessel with mild luminal irregularities. RIGHT CORONARY ARTERY: The right coronary artery is a large caliber vessel which gives off a PDA and PLV branch and is the dominant vessel. There are mild luminal irregularities. FINAL IMPRESSION: 1. CAD as described above including 80% mid LAD and 100% mid to distal LAD stenosis 2. S/p PCI mid to distal LAD with 2.25 x 38mm Xience SHAD, proximal to mid LAD with 2.5 x 33 mm Xience SHAD postdilated proximally with a 3.5 noncompliant balloon 3. Elevated left sided filling pressures PLAN: 1. Aggressive risk factor modification per most recent ACC/AHA guidelines. 2. Continue dual antiplatelets with aspirin and Effient for a total of 12 months
[2021-12-27 12:13] LABS: Glucose,Whole Blood 195 mg/dL (70-110)
[2021-12-27] MEDS: NITROGLYCERIN OINT 1 INCH/GM PACKET TOPICAL SCH ×2 (13:15→17:18)
[2021-12-27] MEDS: SODIUM CHLORIDE 0.9% 1,000 ML in EMPTY BAG 1 BAG IV SCH (13:16)
[2021-12-27] MEDS: INSULIN ASPART (NovoLOG) 100 UNIT/ML VIAL SQ SCH ×4 (13:17→21:35)
[2021-12-27 16:36] VITALS: BMI 27.3
[2021-12-27 16:46] LABS: HDL Cholesterol 35.2 mg/dL (40.00-60.00); Triglycerides 43.2 mg/dL (0.00-149.00)
[2021-12-27 16:48] LABS: Glucose,Whole Blood 227 mg/dL (70-110)
[2021-12-27 17:16] LABS: Chol/HDL Ratio 3.21 Ratio; LDL Cholesterol,Direct Reflex 63.1 mg/dL (0.00-129.00)
[2021-12-27] MEDS: METOPROLOL TARTRATE 25 MG TAB PO SCH (20:43)
[2021-12-27 21:10] LABS: Glucose,Whole Blood 152 mg/dL (70-110)
[2021-12-28] MEDS: NITROGLYCERIN OINT 1 INCH/GM PACKET TOPICAL SCH ×5 (01:50→18:38)
[2021-12-28] MEDS ORDERED: NITROGLYCERIN-D5W PMX 50 MG in DEXTROSE/WATER 1 250ML.BAG IV SCH (04:45)
[2021-12-28 05:54] LABS: Basophils % (A) 0 %; Eosinophils % (A) 0 %; HCT 41.4 % (39.0-53.0); HGB 14.3 gm/dL (13.0-17.5); Lymphocytes # (A) 0.7 k/uL (1.0-4.8); Lymphocytes % (A) 5 %; MCH 30.2 pg (25.0-35.0); MCHC 34.6 g/dL (31.0-37.0); MCV 87.3 fL (80.0-100.0); Mean Platelet Volume 7.6; Monocytes # (A) 1.2 k/uL (0-1.0); Monocytes % (A) 9 %; Neutrophils % (A) 84 %; Platelet Count 168 k/uL (150-450); RBC 4.74 m/uL (4.30-5.90); RDW 13.9 % (11.5-15.5); WBC 14.2 k/uL (3.8-10.6)
[2021-12-28 05:59] LABS: INR 1.2 (<1.2); Prothrombin Time 12.6 sec (9.0-12.0)
[2021-12-28 06:06] LABS: African American GFR (CKD) 81 (>60 ml/min/1.73 sqM); Anion Gap 10 mmol/L; Blood Urea Nitrogen 20 mg/dL (9-20); Calcium 8.6 mg/dL (8.4-10.2); Carbon Dioxide 23 mmol/L (22-30); Chloride 100 mmol/L (98-107); Glucose 209 mg/dL (74-99); Non-African American GFR(CKD) 70 (>60 ml/min/1.73 sqM); Potassium 4.6 mmol/L (3.5-5.1); Sodium 133 mmol/L (137-145)
[2021-12-28] MEDS: METOPROLOL TARTRATE 25 MG TAB PO SCH (08:03)
[2021-12-28] MEDS: ATORVASTATIN 80 MG TAB PO SCH (08:03)
[2021-12-28] MEDS: PRASUGREL 10 MG TAB PO SCH (08:04)
[2021-12-28] MEDS: INSULIN ASPART (NovoLOG) 100 UNIT/ML VIAL SQ SCH ×4 (08:04→20:17)
[2021-12-28] MEDS: ASPIRIN 81 MG PO SCH (08:17)
[2021-12-28] MEDS ORDERED: ASPIRIN 325 MG TAB PO SCH (09:00)
[2021-12-28] MEDS ORDERED: ASPIRIN 81 MG PO SCH (09:00)
[2021-12-28 09:07] LABS: Chol/HDL Ratio 2.86 Ratio; LDL Cholesterol,Calculated 48.7 mg/dL (0.0-131.0); VLDL Calculation 10.52 mg/dL (5.00-40.00)
[2021-12-28] MEDS: METOPROLOL TARTRATE 50 MG TAB PO SCH ×2 (09:37→20:16)
--- NOTE | 2021-12-28 11:25 | CA ---
Transthoracic Echo Report Name: Oscar Valdes Age: 66 Gender: M : 1955 Exam Date: 12/27/2021 12:42 Exam Location: [facility] Ht (in): 68 Wt (lb): 180 Ordering Physician: Pablo Conti DO Attending/Referring Phys: Reheat Furnace Operator Serena Rivers RDCS Procedure CPT: Indications: PA Cardiac Hx: Technical Quality: Excellent Contrast 1: Total Dose (mL): Contrast 2: Total Dose (mL): MEASUREMENTS (Male / Female) Normal Values 2D ECHO LV Diastolic Diameter PLAX 4.7 cm 4.2 - 5.9 / 3.9 - 5.3 cm LV Systolic Diameter PLAX 3.7 cm IVS Diastolic Thickness 1.5 cm 0.6 - 1.0 / 0.6 - 0.9 cm LVPW Diastolic Thickness 1.2 cm 0.6 - 1.0 / 0.6 - 0.9 cm LV Relative Wall Thickness 0.6 RV Internal Dim ED PLAX 3.1 cm LA Systolic Diameter LX 3.2 cm 3.0 - 4.0 / 2.7 - 3.8 cm LA Volume 49.4 cm??? 18 - 58 / 22 - 52 cm??? M-MODE Aortic Root Diameter MM 4.0 cm MV E Point Septal Separation 0.8 cm AV Cusp Separation MM 2.3 cm DOPPLER AV Peak Velocity 118.9 cm/s AV Peak Gradient 5.7 mmHg MV Area PHT 4.8 cm??? Mitral E Point Velocity 72.0 cm/s Mitral A Point Velocity 82.9 cm/s Mitral E to A Ratio 0.9 MV Deceleration Time 159.4 ms MV E' Velocity 5.1 cm/s Mitral E to MV E' Ratio 14.1 TR Peak Velocity 230.8 cm/s TR Peak Gradient 21.3 mmHg Right Ventricular Systolic Press 25.5 mmHg FINDINGS Left Ventricle Left ventricular ejection fraction is estimated at 35 %. Moderately increased septal wall thickness. Left ventricular cavity size normal. Apical septum, apical anterior, apical anterior and apical lateral woods hypokinesis Right Ventricle Normal right ventricular size and function. Right ventricular systolic pressure within normal limits. Right Atrium Normal right atrial size. Left Atrium Normal left atrial size. Mitral Valve Structurally normal mitral valve. Mild mitral regurgitation. Aortic Valve Trileaflet aortic valve. Focal thickening of the aortic valve cusps. Tricuspid Valve Mild tricuspid regurgitation. Pulmonic Valve Trace to mild pulmonic regurgitation. Pericardium Normal pericardium. No pericardial effusion. Aorta Moderate aortic dilatation at the level of the sinuses of valsalva 40 mm CONCLUSIONS Large anterior, apical akinesis extending to distal inferior and lateral woods No MR no thrombus EF 35% Previewed by: Dr. Marky Becker MD (Electronically Signed) Final Date: 28 December 2021 11:25
--- NOTE | 2021-12-28 11:31 | P.PN ---
Subjective Progress Note Date: 12/28/21 The patient is a 66-year-old male who presented to the hospital with right chest wall and right arm discomfort. Symptoms had started 24 hours prior and he went to urgent care for muscle injury. EKG showed anterior wall myocardial infarction and was therefore transferred to [facility]. He underwent coronary angiogram which showed occluded LAD. Dr. rCespo performed mid and distal stenting. Echocardiogram has revealed reduced LV function at 35% with apical hypokinesis. The patient states he does have some mild discomfort around his heart. He describes it more as a chronic ache. No chest pressure or chest pain that he experienced prior to presenting to the hospital. No difficulty breathing. No dizziness or lightheadedness when he ambulates to the bathroom. GENERAL: Well-appearing, well-nourished and in no acute distress. NECK: Supple without JVD or thyromegaly. LUNGS: Breath sounds clear to auscultation bilaterally. Respiration equal and unlabored. No wheezes, rales or rhonchi. HEART: Regular rate and rhythm without murmurs, rubs or gallops. S1 and S2 heard. EXTREMITIES: Normal range of motion, no edema. No clubbing or cyanosis. Peripheral pulses intact and strong. Right radial site is healed VITALS: Blood pressure 116/74, pulse 71, respiratory rate 22, SpO2 94% on room air TELEMETRY: Sinus rhythm overnight LABS: WBC 14.2, hemoglobin 14.3, hematocrit 41.4, platelet 168, sodium 133, potassium 4.6, BUN 20, creatinine 1.1, triglycerides 52, HDL 31, LDL 48 IMPRESSION: Anterior wall myocardial infarction Status post stenting of the LAD Ischemic cardiomyopathy, EF 35% with apical hypokinesis Type 2 diabetes Dyslipidemia Hypertension PLAN: Increase metoprolol to 50 mg twice daily Start low-dose losartan Consider adding spironolactone in the future Continue to monitor for ventricular arrhythmias Consideration for discharge with [facility] Further recommendations will be based on clinical course I am dictating on behalf of Dr Marky Becker's history/physical and assess ment/plan. Objective - Vital Signs Vital signs: Vital Signs Temp 99.9 F H 12/28/21 08:35 Pulse 77 12/28/21 11:00 Resp 22 12/28/21 11:00 BP 117/75 12/28/21 11:00 Pulse Ox 95 12/28/21 11:00 FiO2 21 12/27/21 13:13 Intake & Output 12/27/21 12/28/21 12/28/21 18:59 06:59 18:59 Intake Total 1140 1122.475 803.45 Output Total 700 325 Balance 440 797.475 803.45 Weight 81.647 kg Intake: IV 300 320 Sodium Chloride 0.9% 1, 320 000 ml In Empty Bag 1 bag @ 1 ML/KG/HR 81.647 mls/ hr IV .[id number] SEAN Rx#: [id number] Intake, IV Titration 480 882.475 83.45 Amount Nitroglycerin-D5w Pmx 50 2.475 3.45 mg In Dextrose/Water 1 250ml.bag @ 5 MCG/MIN 1.5 mls/hr IV .Q24H SEAN Rx#: [id number] Sodium Chloride 0.9% 1, 480 880 80 000 ml In Empty Bag 1 bag @ 1 ML/KG/HR 81.647 mls/ hr IV .[id number] SEAN Rx#: [id number] Oral 360 240 400 Output: Urine 700 325 Other: # Voids 1 1 - Labs CBC & Chem 7: 12/28/21 05:17 12/28/21 05:17 Labs: Abnormal Lab Results - Last 24 Hours (Table) 12/27/21 12/27/21 12/27/21 Range/Units 09:37 12:11 12:23 WBC (3.8-10.6) k/uL Neutrophils # (1.3-7.7) k/uL Lymphocytes # (1.0-4.8) k/uL Monocytes # (0-1.0) k/uL PT (9.0-12.0) sec INR (<1.2) Sodium (137-145) mmol/L Glucose (74-99) mg/dL POC Glucose (mg/dL) 195 H (70-110) mg/dL Hemoglobin A1c 7.3 H (0.0-6.0) % Troponin I 188.000 H* (0.000-0.034) ng/mL HDL Cholesterol (40.00-60.00) mg/dL 12/27/21 12/27/21 12/27/21 Range/Units 12:29 15:33 16:46 WBC (3.8-10.6) k/uL Neutrophils # (1.3-7.7) k/uL Lymphocytes # (1.0-4.8) k/uL Monocytes # (0-1.0) k/uL PT (9.0-12.0) sec INR (<1.2) Sodium (137-145) mmol/L Glucose (74-99) mg/dL POC Glucose (mg/dL) 227 H (70-110) mg/dL Hemoglobin A1c (0.0-6.0) % Troponin I 176.000 H* (0.000-0.034) ng/mL HDL Cholesterol 35.20 L (40.00-60.00) mg/dL 12/27/21 12/28/21 12/28/21 Range/Units 21:08 05:17 05:17 WBC 14.2 H (3.8-10.6) k/uL Neutrophils # 12.0 H (1.3-7.7) k/uL Lymphocytes # 0.7 L (1.0-4.8) k/uL Monocytes # 1.2 H (0-1.0) k/uL PT (9.0-12.0) sec INR (<1.2) Sodium 133 L (137-145) mmol/L Glucose 209 H (74-99) mg/dL POC Glucose (mg/dL) 152 H (70-110) mg/dL Hemoglobin A1c (0.0-6.0) % Troponin I (0.000-0.034) ng/mL HDL Cholesterol 31.90 L (40.00-60.00) mg/dL 12/28/21 Range/Units 05:17 WBC (3.8-10.6) k/uL Neutrophils # (1.3-7.7) k/uL Lymphocytes # (1.0-4.8) k/uL Monocytes # (0-1.0) k/uL PT 12.6 H (9.0-12.0) sec INR 1.2 H (<1.2) Sodium (137-145) mmol/L Glucose (74-99) mg/dL POC Glucose (mg/dL) (70-110) mg/dL Hemoglobin A1c (0.0-6.0) % Troponin I (0.000-0.034) ng/mL HDL Cholesterol (40.00-60.00) mg/dL
--- NOTE | 2021-12-28 11:31 | P.PN ---
Subjective Progress Note Date: 12/28/21 The patient is a 66-year-old male who presented to the hospital with right chest wall and right arm discomfort. Symptoms had started 24 hours prior and he went to urgent care for muscle injury. EKG showed anterior wall myocardial infarction and was therefore transferred to [facility]. He underwent coronary angiogram which showed occluded LAD. Dr. Crespo performed mid and distal stenting. Echocardiogram has revealed reduced LV function at 35% with apical hypokinesis. The patient states he does have some mild discomfort around his heart. He describes it more as a chronic ache. No chest pressure or chest pain that he experienced prior to presenting to the hospital. No difficulty breathing. No dizziness or lightheadedness when he ambulates to the bathroom. GENERAL: Well-appearing, well-nourished and in no acute distress. NECK: Supple without JVD or thyromegaly. LUNGS: Breath sounds clear to auscultation bilaterally. Respiration equal and unlabored. No wheezes, rales or rhonchi. HEART: Regular rate and rhythm without murmurs, rubs or gallops. S1 and S2 heard. EXTREMITIES: Normal range of motion, no edema. No clubbing or cyanosis. Peripheral pulses intact and strong. Right radial site is healed VITALS: Blood pressure 116/74, pulse 71, respiratory rate 22, SpO2 94% on room air TELEMETRY: Sinus rhythm overnight LABS: WBC 14.2, hemoglobin 14.3, hematocrit 41.4, platelet 168, sodium 133, potassium 4.6, BUN 20, creatinine 1.1, triglycerides 52, HDL 31, LDL 48 IMPRESSION: Anterior wall myocardial infarction Status post stenting of the LAD Ischemic cardiomyopathy, EF 35% with apical hypokinesis Type 2 diabetes Dyslipidemia Hypertension PLAN: Increase metoprolol to 50 mg twice daily Start low-dose losartan Consider adding spironolactone in the future Continue to monitor for ventricular arrhythmias Consideration for discharge with [facility] Further recommendations will be based on clinical course I am dictating on behalf of Dr Marky Becker's history/physical and assess ment/plan. Objective - Vital Signs Vital signs: Vital Signs Temp 99.9 F H 12/28/21 08:35 Pulse 77 12/28/21 11:00 Resp 22 12/28/21 11:00 BP 117/75 12/28/21 11:00 Pulse Ox 95 12/28/21 11:00 FiO2 21 12/27/21 13:13 Intake & Output 12/27/21 12/28/21 12/28/21 18:59 06:59 18:59 Intake Total 1140 1122.475 803.45 Output Total 700 325 Balance 440 797.475 803.45 Weight 81.647 kg Intake: IV 300 320 Sodium Chloride 0.9% 1, 320 000 ml In Empty Bag 1 bag @ 1 ML/KG/HR 81.647 mls/ hr IV .[id number] SEAN Rx#: [id number] Intake, IV Titration 480 882.475 83.45 Amount Nitroglycerin-D5w Pmx 50 2.475 3.45 mg In Dextrose/Water 1 250ml.bag @ 5 MCG/MIN 1.5 mls/hr IV .Q24H SEAN Rx#: [id number] Sodium Chloride 0.9% 1, 480 880 80 000 ml In Empty Bag 1 bag @ 1 ML/KG/HR 81.647 mls/ hr IV .[id number] SEAN Rx#: [id number] Oral 360 240 400 Output: Urine 700 325 Other: # Voids 1 1 - Labs CBC & Chem 7: 12/28/21 05:17 12/28/21 05:17 Labs: Abnormal Lab Results - Last 24 Hours (Table) 12/27/21 12/27/21 12/27/21 Range/Units 09:37 12:11 12:23 WBC (3.8-10.6) k/uL Neutrophils # (1.3-7.7) k/uL Lymphocytes # (1.0-4.8) k/uL Monocytes # (0-1.0) k/uL PT (9.0-12.0) sec INR (<1.2) Sodium (137-145) mmol/L Glucose (74-99) mg/dL POC Glucose (mg/dL) 195 H (70-110) mg/dL Hemoglobin A1c 7.3 H (0.0-6.0) % Troponin I 188.000 H* (0.000-0.034) ng/mL HDL Cholesterol (40.00-60.00) mg/dL 12/27/21 12/27/21 12/27/21 Range/Units 12:29 15:33 16:46 WBC (3.8-10.6) k/uL Neutrophils # (1.3-7.7) k/uL Lymphocytes # (1.0-4.8) k/uL Monocytes # (0-1.0) k/uL PT (9.0-12.0) sec INR (<1.2) Sodium (137-145) mmol/L Glucose (74-99) mg/dL POC Glucose (mg/dL) 227 H (70-110) mg/dL Hemoglobin A1c (0.0-6.0) % Troponin I 176.000 H* (0.000-0.034) ng/mL HDL Cholesterol 35.20 L (40.00-60.00) mg/dL 12/27/21 12/28/21 12/28/21 Range/Units 21:08 05:17 05:17 WBC 14.2 H (3.8-10.6) k/uL Neutrophils # 12.0 H (1.3-7.7) k/uL Lymphocytes # 0.7 L (1.0-4.8) k/uL Monocytes # 1.2 H (0-1.0) k/uL PT (9.0-12.0) sec INR (<1.2) Sodium 133 L (137-145) mmol/L Glucose 209 H (74-99) mg/dL POC Glucose (mg/dL) 152 H (70-110) mg/dL Hemoglobin A1c (0.0-6.0) % Troponin I (0.000-0.034) ng/mL HDL Cholesterol 31.90 L (40.00-60.00) mg/dL 12/28/21 Range/Units 05:17 WBC (3.8-10.6) k/uL Neutrophils # (1.3-7.7) k/uL Lymphocytes # (1.0-4.8) k/uL Monocytes # (0-1.0) k/uL PT 12.6 H (9.0-12.0) sec INR 1.2 H (<1.2) Sodium (137-145) mmol/L Glucose (74-99) mg/dL POC Glucose (mg/dL) (70-110) mg/dL Hemoglobin A1c (0.0-6.0) % Troponin I (0.000-0.034) ng/mL HDL Cholesterol (40.00-60.00) mg/dL
--- NOTE | 2021-12-28 11:52 | P.PN ---
Subjective Progress Note Date: 12/28/21 Patient was seen and examined. No acute events overnight. Patient reports some mild changes mild chest discomfort overnight. He denies any shortness breath or palpitations. No lightheadedness. General: non toxic, no distress, appears at stated age Derm: warm, dry Head: atraumatic, normocephalic, symmetric Eyes: EOMI, no lid lag, anicteric sclera Mouth: no lip lesion, mucus membranes moist Cardiovascular: S1S2 reg, no murmur Lungs: CTA bilateral, no rhonchi, no rales , no accessory muscle use Ext: no gross muscle atrophy, no edema, no contractures Neuro: no focal neuro deficits Psych: Alert, oriented, appropriate affect #Anterior wall [place] #Systolic CHF with EF 35% #Elevated d-dimer #Leukocytosis #Diabetes mellitus with hyperglycemia #Transaminitis Chronic conditions: Melanoma post resection, Renal CA post nephrectomy 12 years ago Cardiac cath shows 80% mid LAD and 100% mid to distal LAD s/p PCI. ASA, Parasugrel and Lipitor ordered. Metoprolol increased. Telemetry monitoring. Cardiology on board. Started on ARB, beta javier. Plans for Aldactone and possible life vest. Elevated DDimer could be related to NSTEMI. Patient is not hypoxic nor tachycardic. Will continue to monitor for now. Leukocytosis likely reactive. No signs of active infection. Start low dose insulin sliding scale along with accuchecks ACHS and hypoglycemic precautions. Unknown etiology for transaminitis. Non obstructive. DVT prophylaxis: Heparin Discussed with: Patient Anticipated discharge: 1-[address]: Home Objective - Vital Signs Vital signs: Vital Signs Temp 99.9 F H 12/28/21 08:35 Pulse 77 12/28/21 11:00 Resp 22 12/28/21 11:00 BP 117/75 12/28/21 11:00 Pulse Ox 95 12/28/21 11:00 FiO2 21 12/27/21 13:13 Intake & Output 12/27/21 12/28/21 12/28/21 18:59 06:59 18:59 Intake Total 1140 1122.475 803.45 Output Total 700 325 Balance 440 797.475 803.45 Weight 81.647 kg Intake: IV 300 320 Sodium Chloride 0.9% 1, 320 000 ml In Empty Bag 1 bag @ 1 ML/KG/HR 81.647 mls/ hr IV .[id number] [facility]AN Rx#: [id number] Intake, IV Titration 480 882.475 83.45 Amount Nitroglycerin-D5w Pmx 50 2.475 3.45 mg In Dextrose/Water 1 250ml.bag @ 5 MCG/MIN 1.5 mls/hr IV .Q24H SEAN Rx#: [id number] Sodium Chloride 0.9% 1, 480 880 80 000 ml In Empty Bag 1 bag @ 1 ML/KG/HR 81.647 mls/ hr IV .[id number] SEAN Rx#: [id number] Oral 360 240 400 Output: Urine 700 325 Other: # Voids 1 1 - Labs CBC & Chem 7: 12/28/21 05:17 12/28/21 05:17 Labs: Abnormal Lab Results - Last 24 Hours (Table) 12/27/21 12/27/21 12/27/21 Range/Units 09:37 12:11 12:23 WBC (3.8-10.6) k/uL Neutrophils # (1.3-7.7) k/uL Lymphocytes # (1.0-4.8) k/uL Monocytes # (0-1.0) k/uL PT (9.0-12.0) sec INR (<1.2) Sodium (137-145) mmol/L Glucose (74-99) mg/dL POC Glucose (mg/dL) 195 H (70-110) mg/dL Hemoglobin A1c 7.3 H (0.0-6.0) % Troponin I 188.000 H* (0.000-0.034) ng/mL HDL Cholesterol (40.00-60.00) mg/dL 12/27/21 12/27/21 12/27/21 Range/Units 12:29 15:33 16:46 WBC (3.8-10.6) k/uL Neutrophils # (1.3-7.7) k/uL Lymphocytes # (1.0-4.8) k/uL Monocytes # (0-1.0) k/uL PT (9.0-12.0) sec INR (<1.2) Sodium (137-145) mmol/L Glucose (74-99) mg/dL POC Glucose (mg/dL) 227 H (70-110) mg/dL Hemoglobin A1c (0.0-6.0) % Troponin I 176.000 H* (0.000-0.034) ng/mL HDL Cholesterol 35.20 L (40.00-60.00) mg/dL 12/27/21 12/28/21 12/28/21 Range/Units 21:08 05:17 05:17 WBC 14.2 H (3.8-10.6) k/uL Neutrophils # 12.0 H (1.3-7.7) k/uL Lymphocytes # 0.7 L (1.0-4.8) k/uL Monocytes # 1.2 H (0-1.0) k/uL PT (9.0-12.0) sec INR (<1.2) Sodium 133 L (137-145) mmol/L Glucose 209 H (74-99) mg/dL POC Glucose (mg/dL) 152 H (70-110) mg/dL Hemoglobin A1c (0.0-6.0) % Troponin I (0.000-0.034) ng/mL HDL Cholesterol 31.90 L (40.00-60.00) mg/dL 12/28/21 Range/Units 05:17 WBC (3.8-10.6) k/uL Neutrophils # (1.3-7.7) k/uL Lymphocytes # (1.0-4.8) k/uL Monocytes # (0-1.0) k/uL PT 12.6 H (9.0-12.0) sec INR 1.2 H (<1.2) Sodium (137-145) mmol/L Glucose (74-99) mg/dL POC Glucose (mg/dL) (70-110) mg/dL Hemoglobin A1c (0.0-6.0) % Troponin I (0.000-0.034) ng/mL HDL Cholesterol (40.00-60.00) mg/dL
--- NOTE | 2021-12-28 11:52 | P.PN ---
Subjective Progress Note Date: 12/28/21 Patient was seen and examined. No acute events overnight. Patient reports some mild changes mild chest discomfort overnight. He denies any shortness breath or palpitations. No lightheadedness. General: non toxic, no distress, appears at stated age Derm: warm, dry Head: atraumatic, normocephalic, symmetric Eyes: EOMI, no lid lag, anicteric sclera Mouth: no lip lesion, mucus membranes moist Cardiovascular: S1S2 reg, no murmur Lungs: CTA bilateral, no rhonchi, no rales , no accessory muscle use Ext: no gross muscle atrophy, no edema, no contractures Neuro: no focal neuro deficits Psych: Alert, oriented, appropriate affect #Anterior wall [place] #Systolic CHF with EF 35% #Elevated d-dimer #Leukocytosis #Diabetes mellitus with hyperglycemia #Transaminitis Chronic conditions: Melanoma post resection, Renal CA post nephrectomy 12 years ago Cardiac cath shows 80% mid LAD and 100% mid to distal LAD s/p PCI. ASA, Parasugrel and Lipitor ordered. Metoprolol increased. Telemetry monitoring. Cardiology on board. Started on ARB, beta javier. Plans for Aldactone and possible life vest. Elevated DDimer could be related to NSTEMI. Patient is not hypoxic nor tachycardic. Will continue to monitor for now. Leukocytosis likely reactive. No signs of active infection. Start low dose insulin sliding scale along with accuchecks ACHS and hypoglycemic precautions. Unknown etiology for transaminitis. Non obstructive. DVT prophylaxis: Heparin Discussed with: Patient Anticipated discharge: 1-[address]: Home Objective - Vital Signs Vital signs: Vital Signs Temp 99.9 F H 12/28/21 08:35 Pulse 77 12/28/21 11:00 Resp 22 12/28/21 11:00 BP 117/75 12/28/21 11:00 Pulse Ox 95 12/28/21 11:00 FiO2 21 12/27/21 13:13 Intake & Output 12/27/21 12/28/21 12/28/21 18:59 06:59 18:59 Intake Total 1140 1122.475 803.45 Output Total 700 325 Balance 440 797.475 803.45 Weight 81.647 kg Intake: IV 300 320 Sodium Chloride 0.9% 1, 320 000 ml In Empty Bag 1 bag @ 1 ML/KG/HR 81.647 mls/ hr IV .[id number] [facility]AN Rx#: [id number] Intake, IV Titration 480 882.475 83.45 Amount Nitroglycerin-D5w Pmx 50 2.475 3.45 mg In Dextrose/Water 1 250ml.bag @ 5 MCG/MIN 1.5 mls/hr IV .Q24H SEAN Rx#: [id number] Sodium Chloride 0.9% 1, 480 880 80 000 ml In Empty Bag 1 bag @ 1 ML/KG/HR 81.647 mls/ hr IV .[id number] SEAN Rx#: [id number] Oral 360 240 400 Output: Urine 700 325 Other: # Voids 1 1 - Labs CBC & Chem 7: 12/28/21 05:17 12/28/21 05:17 Labs: Abnormal Lab Results - Last 24 Hours (Table) 12/27/21 12/27/21 12/27/21 Range/Units 09:37 12:11 12:23 WBC (3.8-10.6) k/uL Neutrophils # (1.3-7.7) k/uL Lymphocytes # (1.0-4.8) k/uL Monocytes # (0-1.0) k/uL PT (9.0-12.0) sec INR (<1.2) Sodium (137-145) mmol/L Glucose (74-99) mg/dL POC Glucose (mg/dL) 195 H (70-110) mg/dL Hemoglobin A1c 7.3 H (0.0-6.0) % Troponin I 188.000 H* (0.000-0.034) ng/mL HDL Cholesterol (40.00-60.00) mg/dL 12/27/21 12/27/21 12/27/21 Range/Units 12:29 15:33 16:46 WBC (3.8-10.6) k/uL Neutrophils # (1.3-7.7) k/uL Lymphocytes # (1.0-4.8) k/uL Monocytes # (0-1.0) k/uL PT (9.0-12.0) sec INR (<1.2) Sodium (137-145) mmol/L Glucose (74-99) mg/dL POC Glucose (mg/dL) 227 H (70-110) mg/dL Hemoglobin A1c (0.0-6.0) % Troponin I 176.000 H* (0.000-0.034) ng/mL HDL Cholesterol 35.20 L (40.00-60.00) mg/dL 12/27/21 12/28/21 12/28/21 Range/Units 21:08 05:17 05:17 WBC 14.2 H (3.8-10.6) k/uL Neutrophils # 12.0 H (1.3-7.7) k/uL Lymphocytes # 0.7 L (1.0-4.8) k/uL Monocytes # 1.2 H (0-1.0) k/uL PT (9.0-12.0) sec INR (<1.2) Sodium 133 L (137-145) mmol/L Glucose 209 H (74-99) mg/dL POC Glucose (mg/dL) 152 H (70-110) mg/dL Hemoglobin A1c (0.0-6.0) % Troponin I (0.000-0.034) ng/mL HDL Cholesterol 31.90 L (40.00-60.00) mg/dL 12/28/21 Range/Units 05:17 WBC (3.8-10.6) k/uL Neutrophils # (1.3-7.7) k/uL Lymphocytes # (1.0-4.8) k/uL Monocytes # (0-1.0) k/uL PT 12.6 H (9.0-12.0) sec INR 1.2 H (<1.2) Sodium (137-145) mmol/L Glucose (74-99) mg/dL POC Glucose (mg/dL) (70-110) mg/dL Hemoglobin A1c (0.0-6.0) % Troponin I (0.000-0.034) ng/mL HDL Cholesterol (40.00-60.00) mg/dL
[2021-12-28 11:58] LABS: Glucose,Whole Blood 166 mg/dL (70-110)
[2021-12-28] MEDS: SODIUM CHLORIDE 0.9% 1,000 ML in EMPTY BAG 1 BAG IV SCH ×3 (13:50→20:21)
[2021-12-28 17:05] LABS: Glucose,Whole Blood 228 mg/dL (70-110)
[2021-12-28 20:06] LABS: Glucose,Whole Blood 227 mg/dL (70-110)
[2021-12-28] MEDS: HEPARIN SODIUM,PORCINE/PF 5,000 UNIT/0.5 ML SYRINGE SQ SCH (20:16)
[2021-12-28] MEDS ORDERED: LOSARTAN 25 MG TAB PO SCH (21:00)
[2021-12-29] MEDS: NITROGLYCERIN OINT 1 INCH/GM PACKET TOPICAL SCH ×5 (00:29→23:50)
[2021-12-29 04:36] LABS: Albumin 3.3 g/dL (3.5-5.0); Calcium 8.3 mg/dL (8.4-10.2); Total Bilirubin 0.9 mg/dL (0.2-1.3); Total Protein 5.7 g/dL (6.3-8.2)
[2021-12-29 04:42] LABS: Basophils % (A) 0 %; Eosinophils % (A) 0 %; HCT 39.7 % (39.0-53.0); HGB 13.7 gm/dL (13.0-17.5); Lymphocytes # (A) 1.6 k/uL (1.0-4.8); Lymphocytes % (A) 15 %; MCH 29.8 pg (25.0-35.0); MCHC 34.4 g/dL (31.0-37.0); MCV 86.6 fL (80.0-100.0); Mean Platelet Volume 8.4; Monocytes # (A) 0.9 k/uL (0-1.0); Monocytes % (A) 8 %; Neutrophils # (A) 7.5 k/uL (1.3-7.7); Neutrophils % (A) 72 %; Platelet Count 141 k/uL (150-450); RBC 4.58 m/uL (4.30-5.90); RDW 14.2 % (11.5-15.5); WBC 10.4 k/uL (3.8-10.6)
[2021-12-29 06:16] LABS: Glucose,Whole Blood 144 mg/dL (70-110)
[2021-12-29] MEDS: INSULIN ASPART (NovoLOG) 100 UNIT/ML VIAL SQ SCH ×4 (06:31→20:29)
[2021-12-29] MEDS: ATORVASTATIN 80 MG TAB PO SCH (08:59)
[2021-12-29] MEDS: HEPARIN SODIUM,PORCINE/PF 5,000 UNIT/0.5 ML SYRINGE SQ SCH ×2 (08:59→20:25)
[2021-12-29] MEDS: PRASUGREL 10 MG TAB PO SCH (08:59)
[2021-12-29] MEDS: ASPIRIN 81 MG PO SCH (08:59)
[2021-12-29] MEDS: METOPROLOL TARTRATE 50 MG TAB PO SCH ×2 (08:59→20:25)
--- NOTE | 2021-12-29 09:42 | P.PN ---
Subjective Progress Note Date: 12/29/21 Patient is seen today resting comfortably in the chair, stating he feels great today. He is in no signs of acute distress. He denies chest pain or increased shortness of breath. He is asking to get up and be able to walk the halls. Right radial puncture site is soft nontender, no hematoma noted. Patient's blood pressure is stable. Will continue with dual antiplatelet therapy for Effient and aspirin. Will continue with atorvastatin and metoprolol. Will increase Cozaar to 25 mg daily. Patient may be transferred to [facility]. Patient will be set up for a LifeVest due to new onset severely decreased LV function, with an EF of 35%. Anticipated discharge in 24 hours. Objective - Vital Signs Vital signs: Vital Signs Temp 99.2 F 12/29/21 08:00 Pulse 77 12/29/21 08:00 Resp 18 12/29/21 08:00 BP 125/75 12/29/21 08:00 Pulse Ox 94 L 12/29/21 09:06 FiO2 21 12/28/21 19:43 Intake & Output 12/28/21 12/29/21 12/29/21 18:59 06:59 18:59 Intake Total 1693.45 880 80 Output Total 1625 Balance 1693.45 -745 80 Intake: IV 960 880 80 Sodium Chloride 0.9% 1, 960 880 80 000 ml In Empty Bag 1 bag @ 1 ML/KG/HR 81.647 mls/ hr IV .[id number] [facility]AN Rx#: [id number] Intake, IV Titration 83.45 Amount Nitroglycerin-D5w Pmx 50 3.45 mg In Dextrose/Water 1 250ml.bag @ 5 MCG/MIN 1.5 mls/hr IV .Q24H [facility]AN Rx#: [id number] Sodium Chloride 0.9% 1, 80 000 ml In Empty Bag 1 bag @ 1 ML/KG/HR 81.647 mls/ hr IV .[id number] [facility] Rx#: [id number] Oral 650 Output: Urine 1625 Other: Voiding Method Urinal Urinal # Voids 1 0 0 # Bowel Movements 1 1 - Exam PHYSICAL EXAM: VITAL SIGNS: Reviewed. GENERAL: Well-developed in no acute distress. HEENT: Head is normocephalic. Pupils are equal, round. Sclerae anicteric. Mucous membranes of the mouth are moist. NECK: Supple. No JVD or thyromegaly RESPIRATORY: Respirations even and unlabored. Lungs diminished to auscultation bilaterally. CARDIO: Regular rate and rhythm. S1 and S2 heard. No murmur or gallops. EXTREMITIES: Normal range of motion. No clubbing or cyanosis. Peripheral pulses intact. Negative for bilateral lower extremity edema NEURO: Orientated to person, time, mood is appropriate - Labs CBC & Chem 7: 12/29/21 03:36 12/29/21 03:36 Labs: Abnormal Lab Results - Last 24 Hours (Table) 12/28/21 12/28/21 12/28/21 Range/Units 11:56 17:04 19:54 Plt Count (150-450) k/uL Sodium (137-145) mmol/L Glucose (74-99) mg/dL POC Glucose (mg/dL) 166 H 228 H 227 H (70-110) mg/dL Calcium (8.4-10.2) mg/dL AST (17-59) U/L Total Protein (6.3-8.2) g/dL Albumin (3.5-5.0) g/dL 12/29/21 12/29/21 12/29/21 Range/Units 03:36 03:36 06:14 Plt Count 141 L (150-450) k/uL Sodium 136 L (137-145) mmol/L Glucose 136 H (74-99) mg/dL POC Glucose (mg/dL) 144 H (70-110) mg/dL Calcium 8.3 L (8.4-10.2) mg/dL AST 81 H (17-59) U/L Total Protein 5.7 L (6.3-8.2) g/dL Albumin 3.3 L (3.5-5.0) g/dL Assessment and Plan Assessment: Anterior wall myocardial infarction Status post stenting of the LAD Ischemic cardiomyopathy, EF 35% with apical hypokinesis Type 2 diabetes Plan: Increase Cozaar to 25 mg daily Transfer to 3 S. Septic patient up with LifeVest today Continue with all other current cardiac medication Continue with telemetry monitoring Encourage activity as tolerated Anticipated discharge in the next 24 hours Further recommendations based on clinical course The above impression and plan of care have been discussed and directed by the signing physician. Monika Neri, nurse practitioner, acting as scribe for signing physician.
--- NOTE | 2021-12-29 09:42 | P.PN ---
Subjective Progress Note Date: 12/29/21 Patient is seen today resting comfortably in the chair, stating he feels great today. He is in no signs of acute distress. He denies chest pain or increased shortness of breath. He is asking to get up and be able to walk the halls. Right radial puncture site is soft nontender, no hematoma noted. Patient's blood pressure is stable. Will continue with dual antiplatelet therapy for Effient and aspirin. Will continue with atorvastatin and metoprolol. Will increase Cozaar to 25 mg daily. Patient may be transferred to [facility]. Patient will be set up for a LifeVest due to new onset severely decreased LV function, with an EF of 35%. Anticipated discharge in 24 hours. Objective - Vital Signs Vital signs: Vital Signs Temp 99.2 F 12/29/21 08:00 Pulse 77 12/29/21 08:00 Resp 18 12/29/21 08:00 BP 125/75 12/29/21 08:00 Pulse Ox 94 L 12/29/21 09:06 FiO2 21 12/28/21 19:43 Intake & Output 12/28/21 12/29/21 12/29/21 18:59 06:59 18:59 Intake Total 1693.45 880 80 Output Total 1625 Balance 1693.45 -745 80 Intake: IV 960 880 80 Sodium Chloride 0.9% 1, 960 880 80 000 ml In Empty Bag 1 bag @ 1 ML/KG/HR 81.647 mls/ hr IV .[id number] SEAN Rx#: [id number] Intake, IV Titration 83.45 Amount Nitroglycerin-D5w Pmx 50 3.45 mg In Dextrose/Water 1 250ml.bag @ 5 MCG/MIN 1.5 mls/hr IV .Q24H SEAN Rx#: [id number] Sodium Chloride 0.9% 1, 80 000 ml In Empty Bag 1 bag @ 1 ML/KG/HR 81.647 mls/ hr IV .[id number] SEAN Rx#: [id number] Oral 650 Output: Urine 1625 Other: Voiding Method Urinal Urinal # Voids 1 0 0 # Bowel Movements 1 1 - Exam PHYSICAL EXAM: VITAL SIGNS: Reviewed. GENERAL: Well-developed in no acute distress. HEENT: Head is normocephalic. Pupils are equal, round. Sclerae anicteric. Mucous membranes of the mouth are moist. NECK: Supple. No JVD or thyromegaly RESPIRATORY: Respirations even and unlabored. Lungs diminished to auscultation bilaterally. CARDIO: Regular rate and rhythm. S1 and S2 heard. No murmur or gallops. EXTREMITIES: Normal range of motion. No clubbing or cyanosis. Peripheral pulses intact. Negative for bilateral lower extremity edema NEURO: Orientated to person, time, mood is appropriate - Labs CBC & Chem 7: 12/29/21 03:36 12/29/21 03:36 Labs: Abnormal Lab Results - Last 24 Hours (Table) 12/28/21 12/28/21 12/28/21 Range/Units 11:56 17:04 19:54 Plt Count (150-450) k/uL Sodium (137-145) mmol/L Glucose (74-99) mg/dL POC Glucose (mg/dL) 166 H 228 H 227 H (70-110) mg/dL Calcium (8.4-10.2) mg/dL AST (17-59) U/L Total Protein (6.3-8.2) g/dL Albumin (3.5-5.0) g/dL 12/29/21 12/29/21 12/29/21 Range/Units 03:36 03:36 06:14 Plt Count 141 L (150-450) k/uL Sodium 136 L (137-145) mmol/L Glucose 136 H (74-99) mg/dL POC Glucose (mg/dL) 144 H (70-110) mg/dL Calcium 8.3 L (8.4-10.2) mg/dL AST 81 H (17-59) U/L Total Protein 5.7 L (6.3-8.2) g/dL Albumin 3.3 L (3.5-5.0) g/dL Assessment and Plan Assessment: Anterior wall myocardial infarction Status post stenting of the LAD Ischemic cardiomyopathy, EF 35% with apical hypokinesis Type 2 diabetes Plan: Increase Cozaar to 25 mg daily Transfer to 3 S. Septic patient up with LifeVest today Continue with all other current cardiac medication Continue with telemetry monitoring Encourage activity as tolerated Anticipated discharge in the next 24 hours Further recommendations based on clinical course The above impression and plan of care have been discussed and directed by the signing physician. Monika Neri, nurse practitioner, acting as scribe for signing physician.
--- NOTE | 2021-12-29 10:00 | P.PN ---
Subjective Progress Note Date: 12/29/21 Patient was seen and examined. No acute events overnight. Patient reports left sided back pain, improved from yesterday. He denies any shortness breath or palpitations. No lightheadedness. General: non toxic, no distress, appears at stated age Derm: warm, dry Head: atraumatic, normocephalic, symmetric Eyes: EOMI, no lid lag, anicteric sclera Mouth: no lip lesion, mucus membranes moist Cardiovascular: S1S2 reg, no murmur Lungs: CTA bilateral, no rhonchi, no rales , no accessory muscle use Ext: no gross muscle atrophy, no edema, no contractures Neuro: no focal neuro deficits Psych: Alert, oriented, appropriate affect #Anterior wall [place] #Systolic CHF with EF 35% #Elevated d-dimer #Leukocytosis #Diabetes mellitus with hyperglycemia #Transaminitis Chronic conditions: Melanoma post resection, Renal CA post nephrectomy 12 years ago Cardiac cath shows 80% mid LAD and 100% mid to distal LAD s/p PCI. ASA, Parasugrel and Lipitor ordered. Metoprolol. Telemetry monitoring. Cardiology on board. Started on ARB, beta javier. Plans for Aldactone and life vest. Elevated DDimer could be related to NSTEMI. Patient is not hypoxic nor tachycardic. Will continue to monitor for now. Leukocytosis likely reactive. No signs of active infection. Start low dose insulin sliding scale along with accuchecks ACHS and hypoglycemic precautions. Unknown etiology for transaminitis. Non obstructive. DVT prophylaxis: Heparin Discussed with: Patient Anticipated discharge: 1-[address]: Home Objective - Vital Signs Vital signs: Vital Signs Temp 99.2 F 12/29/21 08:00 Pulse 77 12/29/21 08:00 Resp 18 12/29/21 08:00 BP 125/75 12/29/21 08:00 Pulse Ox 94 L 12/29/21 09:06 FiO2 21 12/28/21 19:43 Intake & Output 12/28/21 12/29/21 12/29/21 18:59 06:59 18:59 Intake Total 1693.45 880 80 Output Total 1625 Balance 1693.45 -745 80 Intake: IV 960 880 80 Sodium Chloride 0.9% 1, 960 880 80 000 ml In Empty Bag 1 bag @ 1 ML/KG/HR 81.647 mls/ hr IV .[id number] [facility]AN Rx#: [id number] Intake, IV Titration 83.45 Amount Nitroglycerin-D5w Pmx 50 3.45 mg In Dextrose/Water 1 250ml.bag @ 5 MCG/MIN 1.5 mls/hr IV .Q24H SEAN Rx#: [id number] Sodium Chloride 0.9% 1, 80 000 ml In Empty Bag 1 bag @ 1 ML/KG/HR 81.647 mls/ hr IV .[id number] SEAN Rx#: [id number] Oral 650 Output: Urine 1625 Other: Voiding Method Urinal Urinal # Voids 1 0 0 # Bowel Movements 1 1 - Labs CBC & Chem 7: 12/29/21 03:36 12/29/21 03:36 Labs: Abnormal Lab Results - Last 24 Hours (Table) 12/28/21 12/28/21 12/28/21 Range/Units 11:56 17:04 19:54 Plt Count (150-450) k/uL Sodium (137-145) mmol/L Glucose (74-99) mg/dL POC Glucose (mg/dL) 166 H 228 H 227 H (70-110) mg/dL Calcium (8.4-10.2) mg/dL AST (17-59) U/L Total Protein (6.3-8.2) g/dL Albumin (3.5-5.0) g/dL 12/29/21 12/29/21 12/29/21 Range/Units 03:36 03:36 06:14 Plt Count 141 L (150-450) k/uL Sodium 136 L (137-145) mmol/L Glucose 136 H (74-99) mg/dL POC Glucose (mg/dL) 144 H (70-110) mg/dL Calcium 8.3 L (8.4-10.2) mg/dL AST 81 H (17-59) U/L Total Protein 5.7 L (6.3-8.2) g/dL Albumin 3.3 L (3.5-5.0) g/dL
--- NOTE | 2021-12-29 10:00 | P.PN ---
Subjective Progress Note Date: 12/29/21 Patient was seen and examined. No acute events overnight. Patient reports left sided back pain, improved from yesterday. He denies any shortness breath or palpitations. No lightheadedness. General: non toxic, no distress, appears at stated age Derm: warm, dry Head: atraumatic, normocephalic, symmetric Eyes: EOMI, no lid lag, anicteric sclera Mouth: no lip lesion, mucus membranes moist Cardiovascular: S1S2 reg, no murmur Lungs: CTA bilateral, no rhonchi, no rales , no accessory muscle use Ext: no gross muscle atrophy, no edema, no contractures Neuro: no focal neuro deficits Psych: Alert, oriented, appropriate affect #Anterior wall [place] #Systolic CHF with EF 35% #Elevated d-dimer #Leukocytosis #Diabetes mellitus with hyperglycemia #Transaminitis Chronic conditions: Melanoma post resection, Renal CA post nephrectomy 12 years ago Cardiac cath shows 80% mid LAD and 100% mid to distal LAD s/p PCI. ASA, Parasugrel and Lipitor ordered. Metoprolol. Telemetry monitoring. Cardiology on board. Started on ARB, beta javier. Plans for Aldactone and life vest. Elevated DDimer could be related to NSTEMI. Patient is not hypoxic nor tachycardic. Will continue to monitor for now. Leukocytosis likely reactive. No signs of active infection. Start low dose insulin sliding scale along with accuchecks ACHS and hypoglycemic precautions. Unknown etiology for transaminitis. Non obstructive. DVT prophylaxis: Heparin Discussed with: Patient Anticipated discharge: 1-[address]: Home Objective - Vital Signs Vital signs: Vital Signs Temp 99.2 F 12/29/21 08:00 Pulse 77 12/29/21 08:00 Resp 18 12/29/21 08:00 BP 125/75 12/29/21 08:00 Pulse Ox 94 L 12/29/21 09:06 FiO2 21 12/28/21 19:43 Intake & Output 12/28/21 12/29/21 12/29/21 18:59 06:59 18:59 Intake Total 1693.45 880 80 Output Total 1625 Balance 1693.45 -745 80 Intake: IV 960 880 80 Sodium Chloride 0.9% 1, 960 880 80 000 ml In Empty Bag 1 bag @ 1 ML/KG/HR 81.647 mls/ hr IV .[id number] [facility] Rx#: [id number] Intake, IV Titration 83.45 Amount Nitroglycerin-D5w Pmx 50 3.45 mg In Dextrose/Water 1 250ml.bag @ 5 MCG/MIN 1.5 mls/hr IV .Q24H [facility] Rx#: [id number] Sodium Chloride 0.9% 1, 80 000 ml In Empty Bag 1 bag @ 1 ML/KG/HR 81.647 mls/ hr IV .[id number] [facility] Rx#: [id number] Oral 650 Output: Urine 1625 Other: Voiding Method Urinal Urinal # Voids 1 0 0 # Bowel Movements 1 1 - Labs CBC & Chem 7: 12/29/21 03:36 12/29/21 03:36 Labs: Abnormal Lab Results - Last 24 Hours (Table) 12/28/21 12/28/21 12/28/21 Range/Units 11:56 17:04 19:54 Plt Count (150-450) k/uL Sodium (137-145) mmol/L Glucose (74-99) mg/dL POC Glucose (mg/dL) 166 H 228 H 227 H (70-110) mg/dL Calcium (8.4-10.2) mg/dL AST (17-59) U/L Total Protein (6.3-8.2) g/dL Albumin (3.5-5.0) g/dL 12/29/21 12/29/21 12/29/21 Range/Units 03:36 03:36 06:14 Plt Count 141 L (150-450) k/uL Sodium 136 L (137-145) mmol/L Glucose 136 H (74-99) mg/dL POC Glucose (mg/dL) 144 H (70-110) mg/dL Calcium 8.3 L (8.4-10.2) mg/dL AST 81 H (17-59) U/L Total Protein 5.7 L (6.3-8.2) g/dL Albumin 3.3 L (3.5-5.0) g/dL
[2021-12-29 11:56] LABS: Glucose,Whole Blood 137 mg/dL (70-110)
[2021-12-29 16:43] LABS: Glucose,Whole Blood 163 mg/dL (70-110)
[2021-12-29] MEDS: SODIUM CHLORIDE 0.9% 1,000 ML in EMPTY BAG 1 BAG IV SCH (18:14)
[2021-12-29 20:14] LABS: Glucose,Whole Blood 292 mg/dL (70-110)
[2021-12-29] MEDS ORDERED: LOSARTAN 25 MG TAB PO SCH (21:00)
[2021-12-30] MEDS: SODIUM CHLORIDE 0.9% 1,000 ML in EMPTY BAG 1 BAG IV SCH ×2 (01:42→11:35)
[2021-12-30] MEDS: NITROGLYCERIN OINT 1 INCH/GM PACKET TOPICAL SCH ×2 (06:16→11:21)
[2021-12-30 06:41] LABS: Glucose,Whole Blood 155 mg/dL (70-110)
[2021-12-30] MEDS: INSULIN ASPART (NovoLOG) 100 UNIT/ML VIAL SQ SCH ×3 (07:00→17:08)
[2021-12-30] MEDS: ASPIRIN 81 MG PO SCH (09:03)
[2021-12-30] MEDS: HEPARIN SODIUM,PORCINE/PF 5,000 UNIT/0.5 ML SYRINGE SQ SCH (09:03)
[2021-12-30] MEDS: ATORVASTATIN 80 MG TAB PO SCH (09:04)
[2021-12-30] MEDS: PRASUGREL 10 MG TAB PO SCH (09:04)
[2021-12-30] MEDS: METOPROLOL TARTRATE 50 MG TAB PO SCH (09:04)
[2021-12-30 09:43] VITALS: RESP 16
[2021-12-30 11:34] LABS: Glucose,Whole Blood 194 mg/dL (70-110)
--- NOTE | 2021-12-30 11:50 | P.PN ---
Subjective Progress Note Date: 12/30/21 HISTORY OF PRESENT ILLNESS: Patient examined this morning at the bedside. Patient denies any further episodes of chest pain or pressure. He denies shortness of breath. Vital signs are stable. He has been up and bleeding in his room without difficulty. Right radial cath site with pulse present. PHYSICAL EXAM: VITAL SIGNS: Reviewed. GENERAL: Well-developed in no acute distress. NECK: Supple. No JVD or thyromegaly LUNGS: Respirations even and unlabored. Lungs essentially clear to auscultation bilaterally. HEART: Regular rate and rhythm. S1 and S2 heard. EXTREMITIES: Normal range of motion. No clubbing or cyanosis. Peripheral pulses intact. No lower extremity edema ASSESSMENT: Anterior wall myocardial infarction Status post stenting of the LAD Ischemic cardiomyopathy, EF 35% with apical hypokinesis Type 2 diabetes Dyslipidemia Hypertension PLAN: Continue dual antiplatelet therapy Continue additional cardiac medications Patient will require Wearable Cardioverter Defibrillator (ASSURE) due to ca rdiomyopathy to prevent sudden cardiac Patient may be discharged home this afternoon after he receives his Wearable Cardioverter Defibrillator Nurse practitioner note has been reviewed by physician. Signing provider agrees with the documented findings, assessment, and plan of care. Objective - Vital Signs Vital signs: Vital Signs Temp 98.5 F 12/30/21 09:02 Pulse 60 12/30/21 11:21 Resp 16 12/30/21 11:21 BP 140/83 12/30/21 11:21 Pulse Ox 97 12/30/21 11:21 FiO2 21 12/28/21 19:43 Intake & Output 12/29/21 12/30/21 12/30/21 18:59 06:59 18:59 Intake Total 80 20 Balance 80 20 Intake: IV 80 20 Invasive Line 2 20 Sodium Chloride 0.9% 1, 80 000 ml In Empty Bag 1 bag @ 1 ML/KG/HR 81.647 mls/ hr IV .[id number] [facility] Rx#: [id number] Other: Voiding Method Urinal Toilet Toilet Urinal Urinal # Voids 0 # Bowel Movements 1 - Labs CBC & Chem 7: 12/29/21 03:36 12/29/21 03:36 Labs: Abnormal Lab Results - Last 24 Hours (Table) 12/29/21 12/29/21 12/29/21 Range/Units 11:55 16:42 20:10 POC Glucose (mg/dL) 137 H 163 H 292 H (70-110) mg/dL 12/30/21 12/30/21 Range/Units 06:40 11:33 POC Glucose (mg/dL) 155 H 194 H (70-110) mg/dL
[2021-12-30] MEDS ORDERED: SPIRONOLACTONE 25 MG TAB PO SCH (12:00)
--- NOTE | 2021-12-30 12:32 | P.PN ---
Subjective Progress Note Date: 12/30/21 Patient denies any chest pain. Per nurse the LifeVest agent will be coming in this evening. Objective - Vital Signs Vital signs: Vital Signs Temp 98.5 F 12/30/21 09:02 Pulse 60 12/30/21 11:21 Resp 16 12/30/21 11:21 BP 140/83 12/30/21 11:21 Pulse Ox 97 12/30/21 11:21 FiO2 21 12/28/21 19:43 Intake & Output 12/29/21 12/30/21 12/30/21 18:59 06:59 18:59 Intake Total 80 20 Balance 80 20 Intake: IV 80 20 Invasive Line 2 20 Sodium Chloride 0.9% 1, 80 000 ml In Empty Bag 1 bag @ 1 ML/KG/HR 81.647 mls/ hr IV .[id number] [facility] Rx#: [id number] Other: Voiding Method Urinal Toilet Toilet Urinal Urinal # Voids 0 # Bowel Movements 1 - Exam General examination - Alert and Oriented 3 in NAD Heart - + S1S2 no murmurs Lungs - Clear to auscultation Abdomen soft NT ND +ve BS Extremities - No edema 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 Psych - Calm and cooperative - Labs CBC & Chem 7: 12/29/21 03:36 12/29/21 03:36 Labs: Abnormal Lab Results - Last 24 Hours (Table) 12/29/21 12/29/21 12/30/21 Range/Units 16:42 20:10 06:40 POC Glucose (mg/dL) 163 H 292 H 155 H (70-110) mg/dL 12/30/21 Range/Units 11:33 POC Glucose (mg/dL) 194 H (70-110) mg/dL Assessment and Plan Assessment: #Anterior wall [place] #Systolic CHF with EF 35% #Elevated d-dimer #Leukocytosis #Diabetes mellitus with hyperglycemia #Transaminitis Chronic conditions: Melanoma post resection, Renal CA post nephrectomy 12 years ago Cardiac cath shows 80% mid LAD and 100% mid to distal LAD s/p PCI. ASA, Parasugrel and Lipitor ordered. Metoprolol. Telemetry monitoring. Cardiology on board. Started on ARB, beta javier. Plans for Aldactone and life vest. Elevated DDimer could be related to NSTEMI. Patient is not hypoxic nor tachycardic. Will continue to monitor for now. Leukocytosis likely reactive. No signs of active infection. Start low dose insulin sliding scale along with accuchecks ACHS and hypoglycemic precautions. Unknown etiology for transaminitis. Non obstructive. DVT prophylaxis: Heparin Discussed with: Patient Anticipated discharge: We'll discharge patient once he receives his LifeVest. Anticipated discharge place: Home
--- NOTE | 2021-12-30 12:32 | P.PN ---
Subjective Progress Note Date: 12/30/21 Patient denies any chest pain. Per nurse the LifeVest agent will be coming in this evening. Objective - Vital Signs Vital signs: Vital Signs Temp 98.5 F 12/30/21 09:02 Pulse 60 12/30/21 11:21 Resp 16 12/30/21 11:21 BP 140/83 12/30/21 11:21 Pulse Ox 97 12/30/21 11:21 FiO2 21 12/28/21 19:43 Intake & Output 12/29/21 12/30/21 12/30/21 18:59 06:59 18:59 Intake Total 80 20 Balance 80 20 Intake: IV 80 20 Invasive Line 2 20 Sodium Chloride 0.9% 1, 80 000 ml In Empty Bag 1 bag @ 1 ML/KG/HR 81.647 mls/ hr IV .[id number] [facility] Rx#: [id number] Other: Voiding Method Urinal Toilet Toilet Urinal Urinal # Voids 0 # Bowel Movements 1 - Exam General examination - Alert and Oriented 3 in NAD Heart - + S1S2 no murmurs Lungs - Clear to auscultation Abdomen soft NT ND +ve BS 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 - No 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 Psych - Calm and cooperative - Labs CBC & Chem 7: 12/29/21 03:36 12/29/21 03:36 Labs: Abnormal Lab Results - Last 24 Hours (Table) 12/29/21 12/29/21 12/30/21 Range/Units 16:42 20:10 06:40 POC Glucose (mg/dL) 163 H 292 H 155 H (70-110) mg/dL 12/30/21 Range/Units 11:33 POC Glucose (mg/dL) 194 H (70-110) mg/dL Assessment and Plan Assessment: #Anterior wall [place] #Systolic CHF with EF 35% #Elevated d-dimer #Leukocytosis #Diabetes mellitus with hyperglycemia #Transaminitis Chronic conditions: Melanoma post resection, Renal CA post nephrectomy 12 years ago Cardiac cath shows 80% mid LAD and 100% mid to distal LAD s/p PCI. ASA, Parasugrel and Lipitor ordered. Metoprolol. Telemetry monitoring. Cardiology on board. Started on ARB, beta javier. Plans for Aldactone and life vest. Elevated DDimer could be related to NSTEMI. Patient is not hypoxic nor tachycardic. Will continue to monitor for now. Leukocytosis likely reactive. No signs of active infection. Start low dose insulin sliding scale along with accuchecks ACHS and hypoglycemic precautions. Unknown etiology for transaminitis. Non obstructive. DVT prophylaxis: Heparin Discussed with: Patient Anticipated discharge: We'll discharge patient once he receives his LifeVest. Anticipated discharge place: Home
[2021-12-30 15:44] VITALS: BP 129/73; PULSE 63; TEMP 98.8
--- NOTE | 2021-12-30 16:16 | P.DS ---
Providers Date of admission: 12/27/21 09:59 Expected date of discharge: 12/30/21 Attending physician: Deana Zuniga MD Consults: 12/27/21 09:59 Consult Physician Urgent Consulting Provider: Marky Becker Consult Reason/Comments: mi Do you want consulting provider notified?: Already Contacted 12/27/21 11:57 Consult Physician Routine Consulting Provider: [facility] Consult Reason/Comments: Post Interventional patient Do you want consulting provider notified?: Already Contacted [facility] Course: Discharge Diagnosis: #Anterior wall [place] #Systolic CHF with EF 35% #Elevated d-dimer #Leukocytosis #Diabetes mellitus with hyperglycemia #Transaminitis Hospital Course: Patient is a 66-year-old male with PMH of melanoma status post resection, renal CA status post nephrectomy 12 years ago, diabetes mellitus who presents to the ED for chest pain. Patient reports chest pain that started at 4:30 PM yesterday. 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 He reports right-sided chest pain that radiates to the right arm. Pain is dull in nature. Pain is 3 out of 10 in severity. Pain was associated with diaphoresis. Patient thought this was a musculskeletal pain, but came to the ED when his pain persisted. He denies any exertional chest pain. No exertional shortness of breath. He denies any headache, lower extremity edema, nausea vomiting, fever or chills, cough, palpitations, changes in urination or bowel habits. No changes in appetite or weight. He denies any dizziness, numbness/weakness/tingling of the extremities. In the ED, his vital signs are stable. CBC showed leukocytosis of 14. D-dimer was 0.83. INR was 1.1. CMP showed glucose of 273, calcium of 10.3, AST of 229 and ALT of 77. Chest x-ray negative. EKG was concerning for inferior wall [place] with Q waves. Patient was emergently taken for heart catheterization. Heart cath showed 80% occlusion in the mid LAD and 100% occlusion in the mid to distal LAD. Patient had a stent placed in the mid to distal LAD and proximal to mid LAD. Patient had an echocardiogram done that showed 35% ejection fraction. Cardiology increased patient's metoprolol to 50 mg twice a day and also started low-dose losartan and spironolactone. Patient also received a LifeVest prior to discharge. Patient instructed to follow cardiology. He was started on dual antiplatelet therapy. Patient seen and examined at bedside on 12/30/2021 Vital signs reviewed and stable. General: [non toxic], [no distress], [appears at stated age] Derm: [warm], [dry] Head: [atraumatic], [normocephalic], [symmetric] Eyes: [EOMI], [no lid lag], [anicteric sclera] Mouth: [no lip lesion], [mucus membranes moist] Cardiovascular: [S1S2 reg], [no murmur], [positive posterior tibial pulse bilateral], Lungs: [CTA bilateral], [no rhonchi, no rales] , [no accessory muscle use] Abdominal: [soft], [ nontender to palpation], [no guarding], [no appreciable organomegaly] Ext: [no gross muscle atrophy], [no edema], [no contractures] Neuro: [ CN II-XI grossly intact], [no focal neuro deficits] Psych: [Alert], [oriented], [appropriate affect] A total of [33] minutes of time were spent preparing this complex discharge summary . Patient Condition at Discharge: Good Plan - Discharge Summary Discharge Rx Participant: Yes New Discharge Prescriptions: New Aspirin 81 mg PO DAILY #90 tab Losartan [Cozaar] 25 mg PO HS #90 tab Prasugrel [Effient] 10 mg PO DAILY #90 tab Metoprolol Tartrate [Lopressor] 50 mg PO BID #180 tab Nitroglycerin Sl Tabs [Nitrostat] 0.4 mg SUBLINGUAL Q5M PRN #100 tab PRN Reason: Chest Pain Spironolactone [Aldactone] 25 mg PO DAILY #90 tab Atorvastatin [Lipitor] 80 mg PO DAILY #90 tab Continue glipiZIDE XL [Glucotrol XL] 5 mg PO DAILY metFORMIN HCL ER [Glucophage XR] 1,000 mg PO BID Discontinued lisinopriL 2.5 mg PO DAILY Atorvastatin [Lipitor] 10 mg PO DAILY Discharge Medication List glipiZIDE XL [Glucotrol XL] 5 mg PO DAILY 12/27/21 [History] metFORMIN HCL ER [Glucophage XR] 1,000 mg PO BID 12/27/21 [History] Aspirin 81 mg PO DAILY #90 tab 12/30/21 [Rx] Atorvastatin [Lipitor] 80 mg PO DAILY #90 tab 12/30/21 [Rx] Losartan [Cozaar] 25 mg PO HS #90 tab 12/30/21 [Rx] Metoprolol Tartrate [Lopressor] 50 mg PO BID #180 tab 12/30/21 [Rx] Nitroglycerin Sl Tabs [Nitrostat] 0.4 mg SUBLINGUAL Q5M PRN #100 tab 12/30/21 [Rx] Prasugrel [Effient] 10 mg PO DAILY #90 tab 12/30/21 [Rx] Spironolactone [Aldactone] 25 mg PO DAILY #90 tab 12/30/21 [Rx] Follow up Appointment(s)/Referral(s): Marky Becker MD [STAFF PHYSICIAN] - 1 Week (Office to call patient with appointment once records are pulled.) Leonard Brennan MD [Primary Care Provider] - 01/13/22 11:20 am (Office will call with any sooner appointments related to cancellations.) Patient Instructions/Handouts: Heart Attack (DC), Heart Catheterization (DC) Discharge Disposition: HOME SELF-CARE
[2021-12-30 17:04] LABS: Glucose,Whole Blood 234 mg/dL (70-110)
== END 2021-12-30 18:33 | disposition home or self-care (01) | DRG 247 ==
LOC: EC 09:23 → 3SCARD 09:59 → 2SICU 11:09 → 3SCARD 12-29 11:48
PROVIDERS: ADMIT Family Medicine; ATTEND Family Medicine
PROC: B2151ZZ Fluoroscopy of Left Heart using Low Osmolar Contrast (ICD-10-PCS; principal; 2021-12-27 10:26)
PROC: B2111ZZ Fluoroscopy of Multiple Coronary Arteries using Low Osmolar Contrast (ICD-10-PCS; principal; 2021-12-27 10:26)
PROC: 0270356 Dilation of Coronary Artery, One Artery, Bifurcation, with Two Drug-eluting Intraluminal Devices, Percutaneous Approach (ICD-10-PCS; principal; 2021-12-27 10:26)
PROC: B240ZZ3 Ultrasonography of Single Coronary Artery, Intravascular (ICD-10-PCS; principal; 2021-12-27 10:26)
DX: I21.09 ST elevation (STEMI) myocardial infarction involving other coronary artery of anterior wall (principal); I50.20 Unspecified systolic (congestive) heart failure; I21.19 ST elevation (STEMI) myocardial infarction involving other coronary artery of inferior wall; R79.1 Abnormal coagulation profile; D72.829 Elevated white blood cell count, unspecified; I11.0 Hypertensive heart disease with heart failure; I44.0 Atrioventricular block, first degree; E11.65 Type 2 diabetes mellitus with hyperglycemia; R74.01 Elevation of levels of liver transaminase levels; E78.5 Hyperlipidemia, unspecified; I25.10 Atherosclerotic heart disease of native coronary artery without angina pectoris; I25.5 Ischemic cardiomyopathy; Z79.84 Long term (current) use of oral hypoglycemic drugs; Z85.820 Personal history of malignant melanoma of skin; Z85.528 Personal history of other malignant neoplasm of kidney; Z90.5 Acquired absence of kidney; Z79.899 Other long term (current) drug therapy
CPT/HCPCS: 36415; 71045; 80048; 80053; 80061; 83036; 83721; 83735; 84484; 85025; 85379; 85610; 85730; 92978; 93005; 93306; 93458; 96374; 99285